=== PATIENT | female | born 1940 | race Caucasian/White ===

== ENCOUNTER → 2016-12-05 | Outpatient (CLI) | payer MEDICARE, OTHER ==
[2016-12-05 12:23] LABS: Basophils # (auto) 0 uL; Basophils % (auto) 0.3 % (0.0-2.0); CONDITION Y; Eosinophils # (auto) 0.1 uL; Eosinophils % (auto) 1.6 % (0.0-7.0); Hemoglobin 13.3 g/dL (12.2-16.2); Lymphocytes # (auto) 0.7 uL; Lymphocytes % (auto) 11.5 % (10.0-50.0); Mean Corpuscular Hemoglobin 31.6 pg (28.0-32.0); Mean Corpuscular Hgb Conc. 33.3 g/dL (32.0-36.0); Mean Corpuscular Volume 95.1 fL (80.0-100.0); Mean Platelet Volume 8.3 fL (7.4-10.4); Monocytes # (auto) 0.5 uL; Monocytes % (auto) 7.4 % (0.0-12.0); Neutrophils % (auto) 79.2 % (37.0-80.0); Platelet Count (auto) 364 10^3/uL (140-450); Red Cell Distribution Width 16.1 % (11.6-16.0); White Blood Cell 6.3 10^3/uL (4.4-10.8)
[2016-12-05 12:53] LABS: Albumin 3.7 g/dL (3.4-5.0); BUN/Creatinine Ratio 37.2; Bilirubin, Total 0.6 mg/dL (0.2-1.0); Potassium 3.5 mmol/L (3.5-5.1); Total Protein 7.4 g/dL (6.4-8.2)
== END | disposition home or self-care (01) ==
LOC: LAB 11:55
DX: M06.9 Rheumatoid arthritis, unspecified (principal); M25.50 Pain in unspecified joint; D64.9 Anemia, unspecified; I10 Essential (primary) hypertension; Z79.899 Other long term (current) drug therapy; E03.9 Hypothyroidism, unspecified
CPT/HCPCS: 36415; 80053; 84443; 84480; 85025; 85652; 86141

== ENCOUNTER → 2016-12-12 | Outpatient (CLI) | payer MEDICARE, OTHER ==
[2016-12-12 11:28] LABS: Basophils # (auto) 0 uL; Basophils % (auto) 0.1 % (0.0-2.0); CONDITION Y; Eosinophils # (auto) 0.1 uL; Hemoglobin 12.6 g/dL (12.2-16.2); Lymphocytes # (auto) 0.5 uL; Lymphocytes % (auto) 6.3 % (10.0-50.0); Mean Corpuscular Hemoglobin 31.6 pg (28.0-32.0); Mean Corpuscular Hgb Conc. 33.3 g/dL (32.0-36.0); Mean Corpuscular Volume 95.1 fL (80.0-100.0); Mean Platelet Volume 8.4 fL (7.4-10.4); Monocytes # (auto) 0.4 uL; Monocytes % (auto) 5.5 % (0.0-12.0); Neutrophils # (auto) 6.8 uL; Neutrophils % (auto) 87.1 % (37.0-80.0); Platelet Count (auto) 339 10^3/uL (140-450); Red Cell Distribution Width 16.2 % (11.6-16.0); White Blood Cell 7.8 10^3/uL (4.4-10.8)
[2016-12-12 11:48] LABS: Albumin 3.4 g/dL (3.4-5.0); BUN/Creatinine Ratio 15.1; Bilirubin, Total 0.6 mg/dL (0.2-1.0); Calcium 8.3 mg/dL (8.5-10.1); Potassium 3.4 mmol/L (3.5-5.1); Total Protein 6.9 g/dL (6.4-8.2)
== END | disposition home or self-care (01) ==
LOC: LAB 11:07
DX: I10 Essential (primary) hypertension (principal); M06.9 Rheumatoid arthritis, unspecified; D64.9 Anemia, unspecified; M25.50 Pain in unspecified joint; Z79.899 Other long term (current) drug therapy
CPT/HCPCS: 36415; 80053; 85025; 85652; 86141

== ENCOUNTER → 2016-12-26 | Outpatient (CLI) | payer MEDICARE, OTHER | END | disposition home or self-care (01) | LOC: LAB 11:17 | DX: M33.20 Polymyositis, organ involvement unspecified (principal) | CPT/HCPCS: 36415; 82550 ==

== ENCOUNTER → 2017-01-02 | Outpatient (CLI) | payer MEDICARE, OTHER ==
[2017-01-02 12:53] LABS: Cholesterol 218 mg/dL (< 200); HDL Cholesterol 42 mg/dL (40-59); LDL Cholesterol 166 mg/dL (< 100); Triglycerides 115 mg/dL (< 150)
== END | disposition home or self-care (01) ==
LOC: LAB 10:42
PROVIDERS: ATTEND Internal Medicine
DX: E78.5 Hyperlipidemia, unspecified (principal); E03.9 Hypothyroidism, unspecified
CPT/HCPCS: 36415; 80061; 84443

== ENCOUNTER → 2017-02-06 | Outpatient (CLI) | payer MEDICARE, OTHER ==
[2017-02-06 13:06] LABS: Basophils # (auto) 0 uL; Basophils % (auto) 0.7 % (0.0-2.0); Eosinophils # (auto) 0.1 uL; Lymphocytes # (auto) 0.6 uL; Lymphocytes % (auto) 12.1 % (10.0-50.0); Monocytes # (auto) 0.4 uL; Monocytes % (auto) 7.4 % (0.0-12.0); Neutrophils # (auto) 4.2 uL; Neutrophils % (auto) 77.8 % (37.0-80.0); Nucleated Red Blood Cells % 0.1 %; White Blood Cell 5.3 10^3/uL (4.4-10.8)
[2017-02-06 13:08] LABS: Hematocrit 40.6 % (36.0-46.0); Hemoglobin 13.7 g/dL (12.2-16.2); Mean Corpuscular Hemoglobin 32.3 pg (28.0-32.0); Mean Corpuscular Hgb Conc. 33.8 g/dL (32.0-36.0); Mean Corpuscular Volume 95.6 fL (80.0-100.0); Mean Platelet Volume 7.9 fL (6.9-10.8); Platelet Count (auto) 280 10^3/uL (140-450)
[2017-02-06 15:57] LABS: BUN/Creatinine Ratio 20.4; Potassium 3.9 mmol/L (3.5-5.1)
[2017-02-06 15:58] LABS: Albumin 3.6 g/dL (3.4-5.0); Bilirubin, Total 0.7 mg/dL (0.2-1.0); Calcium 8.5 mg/dL (8.5-10.1); Total Protein 7.3 g/dL (6.4-8.2)
== END | disposition home or self-care (01) ==
LOC: LAB 11:20
DX: I10 Essential (primary) hypertension (principal); D64.9 Anemia, unspecified; M25.50 Pain in unspecified joint; M33.20 Polymyositis, organ involvement unspecified; Z79.899 Other long term (current) drug therapy
CPT/HCPCS: 36415; 80053; 82085; 82550; 85025; 85652; 86141

== ENCOUNTER → 2017-04-10 | Outpatient (CLI) | payer MEDICARE, OTHER ==
[2017-04-10 12:00] LABS: Basophils # (auto) 0 uL; Basophils % (auto) 0.6 % (0.0-2.0); Eosinophils # (auto) 0.2 uL; Eosinophils % (auto) 2.9 % (0.0-7.0); Hematocrit 41.4 % (36.0-46.0); Hemoglobin 13.7 g/dL (12.2-16.2); Lymphocytes # (auto) 0.6 uL; Lymphocytes % (auto) 9.9 % (10.0-50.0); Mean Corpuscular Hemoglobin 32.4 pg (28.0-32.0); Mean Corpuscular Volume 98.3 fL (80.0-100.0); Monocytes # (auto) 0.4 uL; Monocytes % (auto) 7.3 % (0.0-12.0); Neutrophils # (auto) 4.7 uL; Neutrophils % (auto) 79.3 % (37.0-80.0); Nucleated Red Blood Cells % 0.1 %; Platelet Count (auto) 291 10^3/uL (140-450); White Blood Cell 5.9 10^3/uL (4.4-10.8)
[2017-04-10 13:00] LABS: Albumin 3.7 g/dL (3.4-5.0); BUN/Creatinine Ratio 20.8; Bilirubin, Total 0.6 mg/dL (0.2-1.0); Calcium 8.4 mg/dL (8.5-10.1); Potassium 3.7 mmol/L (3.5-5.1); Total Protein 7.4 g/dL (6.4-8.2)
== END | disposition home or self-care (01) ==
LOC: LABCORP 11:28
DX: I10 Essential (primary) hypertension (principal); M06.9 Rheumatoid arthritis, unspecified; E78.00 Pure hypercholesterolemia, unspecified; I70.0 Atherosclerosis of aorta; D64.9 Anemia, unspecified; M33.20 Polymyositis, organ involvement unspecified; Z79.899 Other long term (current) drug therapy
CPT/HCPCS: 36415; 80053; 82550; 85025; 85652; 86141

== ENCOUNTER 2019-03-05 23:28 | Inpatient (IN) | payer MEDICARE, OTHER ==
[~2019-03-05] VITALS: Ht 160 cm; Wt 81.7 kg
[2019-03-06] VITALS (8 sets, daily range): BP systolic 76–163; BP diastolic 45–76
[2019-03-06 00:16] LABS: Basophils # (auto) 0.1 uL; Basophils % (auto) 0.9 % (0.0-2.0); Eosinophils # (auto) 0 uL; Eosinophils % (auto) 0.5 % (0.0-7.0); Hematocrit 42.7 % (36.0-46.0); Hemoglobin 14.2 g/dL (12.2-16.2); Lymphocytes # (auto) 0.7 uL; Lymphocytes % (auto) 7.1 % (10.0-50.0); Mean Corpuscular Hemoglobin 29.7 pg (28.0-32.0); Mean Corpuscular Hgb Conc. 33.2 g/dL (32.0-36.0); Mean Corpuscular Volume 89.6 fL (80.0-100.0); Monocytes # (auto) 0.4 uL; Monocytes % (auto) 4.2 % (0.0-12.0); Neutrophils # (auto) 8.3 uL; Neutrophils % (auto) 87.3 % (37.0-80.0); Platelet Count (auto) 295 10^3/uL (140-450); Red Blood Cells 4.77 10^6/uL (4.0-5.20); Red Cell Distribution Width 17.5 % (11.8-14.3); White Blood Cell 9.5 10^3/uL (4.4-10.8)
[2019-03-06 00:33] LABS: Alanine Aminotransferase 26 U/L (13-56); Albumin 3.6 g/dL (3.4-5.0); Anion Gap 6 (5-15); Aspartate Aminotransferase 21 U/L (15-37); BUN/Creatinine Ratio 13.1; Blood Urea Nitrogen 8 mg/dL (7-18); Calcium 9.1 mg/dL (8.5-10.1); Carbon Dioxide 29 mmol/L (21-32); Chloride 102 mmol/L (98-107); GFR African American 122 mL/min; GFR Non-African American 101 mL/min; Glucose 137 mg/dL (74-106); Lipase 58 U/L (73-393); Magnesium 2.2 mg/dL (1.6-2.6); Potassium 3.7 mmol/L (3.5-5.1); Sodium 137 mmol/L (136-145)
[2019-03-06 00:40] LABS: Alkaline Phosphatase 171 U/L (45-117); Bilirubin, Total 1.2 mg/dL (0.2-1.0); Total Protein 7.6 g/dL (6.4-8.2)
[2019-03-06] MEDS ORDERED: ONDANSETRON HCL 4 MG/2 ML VIAL IV ONE (03:30)
[2019-03-06] MEDS ORDERED: MORPHINE SULFATE 4 MG/ML SYR/VIAL IV ONE (03:30)
[2019-03-06 03:46] LABS: Urine Bacteria FEW /hpf (None Seen); Urine Blood Negative /uL (Negative); Urine Mucus FEW (None Seen); Urine Specific Gravity 1.023 (1.001-1.035); Urine WBC 22 /hpf (0 - 5)
[2019-03-06] MEDS ORDERED: ACETAMINOPHEN 500 MG TAB PO PRN (05:15)
[2019-03-06] MEDS: HYDROmorphone HCL 2 MG/ML VL IV PRN ×3 (06:16→16:07)
[2019-03-06] MEDS: metroNIDAZOLE 500MG/100ML 100 ML IV SCH ×3 (06:29→21:35)
--- NOTE | 2019-03-06 08:40 | NUR ---
PT IN ROOM. IN LOW FOWLERS AT MOMENT. AROUSABLE TO VERBAL STIMULI. ABLE TO LET NEEDS KNOWN, REPORTS GENERALIZED WEAKNESS. EFFORTLESS BREATHING ON ROOM AIR 93% IV PRESENT TO RIGHT WRIST #22. PT ORIENTED TO ROOM ENVIRONMENT, BED LOCKED AND IN LOWEST POSITION, CALL LIGHT WITHIN REACH. WILL CONTINUE TO MONITOR.
[2019-03-06] MEDS ORDERED: POTA10TA51 PO (09:41)
[2019-03-06] MEDS ORDERED: LACTCAP35 OR (09:41)
[2019-03-06] MEDS ORDERED: FOLI1TAB6 PO (09:41)
[2019-03-06] MEDS ORDERED: HYDR-4833 PO (09:41)
[2019-03-06] MEDS ORDERED: FLEETMIN PR (09:41)
[2019-03-06] MEDS ORDERED: CAR3125T PO (09:41)
[2019-03-06] MEDS ORDERED: CYAN500L3 PO (09:41)
[2019-03-06] MEDS ORDERED: BISA10SU45 RE (09:41)
[2019-03-06] MEDS ORDERED: ROSU10TA16 PO (09:41)
[2019-03-06] MEDS ORDERED: MULT-688 PO (09:41)
[2019-03-06] MEDS ORDERED: EZET10TA22 PO (09:41)
[2019-03-06] MEDS ORDERED: MESA0.37 PO (09:41)
[2019-03-06] MEDS ORDERED: LOPE7.5C PO (09:41)
[2019-03-06] MEDS ORDERED: ACET-1156 PO (09:41)
[2019-03-06] MEDS ORDERED: HYDR12.56 PO (09:41)
[2019-03-06] MEDS ORDERED: LOSA-69 PO (09:41)
[2019-03-06] MEDS ORDERED: CARV6.25 PO (09:41)
[2019-03-06] MEDS ORDERED: LEVO100T8 PO (09:41)
[2019-03-06] MEDS ORDERED: CHOL20007 OR (09:41)
[2019-03-06] MEDS ORDERED: LEUC5TAB PO (09:41)
[2019-03-06] MEDS ORDERED: ONDA-144 PO (09:41)
[2019-03-06] MEDS ORDERED: METH50IN6 IJ (09:41)
[2019-03-06] MEDS ORDERED: APIX5TAB PO (09:41)
[2019-03-06] MEDS ORDERED: DOCU100T15 PO (09:41)
[2019-03-06] MEDS ORDERED: MAGN400S25 PO (09:41)
[2019-03-06] MEDS ORDERED: NITR0.4S29 SL (09:41)
[2019-03-06] MEDS ORDERED: FAM20T PO (09:41)
[2019-03-06] MEDS ORDERED: POLY33504 PO (09:41)
[2019-03-06] MEDS: FAMOTIDINE (10MG/ML) 2ML VL IV SCH (10:32)
[2019-03-06] MEDS: cefTRIAXone 1GM/50ML D5W 50 ML IV SCH (10:32)
--- NOTE | 2019-03-06 11:10 | NUR ---
NGT INSERTION COMPLETED. RIGHT NARES, TUBE AT NOTCH 56, SECURED INTO PLACE. KUB ORDERED FOR PLACEMENT CONFIRMATION, RADIOLOGY DEPT. AWARE. WILL CONTINUE TO MONITOR.
--- NOTE | 2019-03-06 12:39 | NUR ---
14 Fr NGT TO RIGHT NARES; TO LOW INTERMITTENT SUCTION PER ORDER. DR. LU AT BEDSIDE, EVALUATING PT. MADE AWARE OF BLOOD PRESSURE 163/76, HR:69 WILL CONTINUE TO MONITOR.
--- NOTE | 2019-03-06 13:10 | NUR ---
SURGICAL CONSULT CALLED.
[2019-03-06] MEDS: SODIUM CHLORIDE 0.9% 1,000 ML IV SCH (14:41)
--- NOTE | 2019-03-06 16:30 | NUR ---
DR. VÁZQUEZ AT BEDSIDE. PLAN OF CARE IN DISCUSSION WITH PT AND FAMILY.
--- NOTE | 2019-03-06 16:45 | NUR ---
HYGIENE CARE PROVIDED, HYDRA-GUARD APPLIED TO PERINEAL AREA.
--- NOTE | 2019-03-06 17:05 | NUR ---
B/P: 70/50 (59), 85; 16; 94% ON 2LNC. PT RESPONSIVE TO VERBAL STIMULI, ORIENTEDx3. ABLE TO LET NEEDS KNOWN AT THIS TIME. PT RECEIVING FLUIDS PER ORDER AT MOMENT. CN MADE AWARE OF PT'S CONDITION. WILL CONTINUE TO MONITOR. CLOSELY. RADIOLOGY DEPT. CALLED AND SCHEDULE BOWEL SERIES FOR MORNING OF 03/07/19 DUE TO STAFFING AND CURRENT PT'S CONDITION.
--- NOTE | 2019-03-06 17:34 | NUR ---
B/P: 76/53 (61) PT RESPONDS TO COMMANDS. ORIENTED x3. FAMILY AT BEDSIDE. CALL LIGHT WITHIN REACH.
--- NOTE | 2019-03-06 17:59 | NUR ---
NGT IN PLACE AND SECURED TO RIGHT NARES. 150ML OF CREAM-LIKE RESIDUAL IN COLLECTING CHAMBER.
--- NOTE | 2019-03-06 18:18 | NUR ---
PT RESPONSIVE TO NAME, AWAKENS EASILY. ORIENTED x3. ABLE TO LET NEEDS KNOWN. B/P: 81/56 (66), HR: 78, RR: 17; 98% 2LNC. CALL LIGHT WITHIN REACH.
--- NOTE | 2019-03-06 19:40 | NUR ---
OPENING SHIFT NOTE RECEIVED REPORT FROM DAYSHIFT RN. PATIENT LYING IN BED WITH EYES CLOSED. PATIENT A/O X4, BEDREST. NO S/S OF DISTRESS OR SOB. PATIENT REPORTS PAIN TO ABDOMEN, INFORMED PATIENT BP TOO LOW TO ADMINISTER PAIN MEDICATIONS, PATIENT VERBALIZED UNDERSTANDING. NGT PRESENT AND PATENT TO RIGHT NARE ON LIS, PATIENT TOLERATING WELL. UPDATED PATIENT ON POC, VERBALIZED UNDERSTANDING. BED LOCKED IN LOW POSITION, CALL LIGHT WITHIN REACH, BED ALARM ON FOR SAFETY. WILL CONTINUE TO MONITOR PATIENT Q1HR AND PRN.
[2019-03-07 04:48] VITALS: BP 98/55
[2019-03-07] MEDS: metroNIDAZOLE 500MG/100ML 100 ML IV SCH ×3 (05:32→21:27)
[2019-03-07] MEDS: SODIUM CHLORIDE 0.9% 1,000 ML IV SCH ×3 (05:32→21:07)
[2019-03-07 06:46] LABS: Basophils # (auto) 0 uL; Basophils % (auto) 0.1 % (0.0-2.0); Eosinophils # (auto) 0 uL; Eosinophils % (auto) 0.1 % (0.0-7.0); Hematocrit 40.8 % (36.0-46.0); Hemoglobin 13.5 g/dL (12.2-16.2); Lymphocytes # (auto) 0.4 uL; Lymphocytes % (auto) 9.4 % (10.0-50.0); Mean Corpuscular Hemoglobin 29.8 pg (28.0-32.0); Mean Corpuscular Volume 90.5 fL (80.0-100.0); Monocytes # (auto) 0.5 uL; Monocytes % (auto) 10.8 % (0.0-12.0); Neutrophils # (auto) 3.7 uL; Neutrophils % (auto) 79.6 % (37.0-80.0); Platelet Count (auto) 258 10^3/uL (140-450); Red Blood Cells 4.51 10^6/uL (4.0-5.20); Red Cell Distribution Width 17.8 % (11.8-14.3); White Blood Cell 4.7 10^3/uL (4.4-10.8)
[2019-03-07 07:13] LABS: BUN/Creatinine Ratio 27.4; Calcium 7.6 mg/dL (8.5-10.1); Potassium 3.4 mmol/L (3.5-5.1)
[2019-03-07] MEDS: cefTRIAXone 1GM/50ML D5W 50 ML IV SCH (07:57)
[2019-03-07] MEDS ORDERED: GASTROGRAFIN 120 ML SOL ONE (09:28)
[2019-03-07 09:30] VITALS: BP 102/52
[2019-03-07] MEDS: FAMOTIDINE (10MG/ML) 2ML VL IV SCH (10:19)
--- NOTE | 2019-03-07 10:25 | NUR ---
DR. MACKAY WAS IN TO SEE PT FOR CARDIAC CLEARANCE. STATED THAT THE PT IS ON INTERMEDIATE RISK FOR SURGERY.
--- NOTE | 2019-03-07 10:50 | NUR ---
PAGED DR. VÁZQUEZ AND MD CALLED BACK AND INFORMED MD THAT PT WAS CLEARED BY DR. MACKAY FOR SURGERY. WANTED THE BOWEL SERIES DONE URGENTLY. PHONED RADIOLOGY AND INFORMED THEM THAT DR. VÁZQUEZ WANTS THE PROCEDURE DONE URGENTLY.
[2019-03-07 12:22] VITALS: BP 104/56
--- NOTE | 2019-03-07 12:30 | NUR ---
PT TO RADIOLOGY PER BED FOR SMALL BOWEL SERIES. PT LEFT IN A STABLE CONDITION.
--- NOTE | 2019-03-07 13:35 | NUR ---
PT RETURNED FROM RADIOLOGY PER BED IN A STABLE CONDITION. PT'S NGT REMAINED CLAMPED PER TECH INSTRUCTION.
[2019-03-07] MEDS: ONDANSETRON HCL 4 MG/2 ML VIAL IV PRN (15:33)
--- NOTE | 2019-03-07 16:35 | NUR ---
Pt is an alert and oriented female that has been residing at home alone and functioning independently prior to admission. Pt states she had this condition back in November and she was sent to [facility]. States she stayed there until January 24. Discussed with pt if she was looking at SNF placement( if she qualifies) or going home. Also advised pt that she may not have any Skilled days left and the facility would have to be contacted. Pt states she would like to go for placement if she qualifies and has days left. Otherwise pt is receptive to home health. Pt states she has not been on home health services before and has no preference at this time but wants to wait to hear what the facility has to say. Will advise Tanna to make inquiry with [facility] and continue to monitor/provide intervention as neccessary. Addendum: 03/07/19 at 1639 by FRANK AU Amended: Links added.
[2019-03-07 16:50] VITALS: BP 101/59
--- NOTE | 2019-03-07 19:40 | NUR ---
OPENING SHIFT NOTE RECEIVED REPORT FROM DAYSHIFT RN. PATIENT LYING IN BED WITH EYES CLOSED. PATIENT A/O X4, BEDREST. NO S/S OF DISTRESS OR SOB. PATIENT REPORTS PAIN TO ABDOMEN, INFORMED PATIENT BP TOO LOW TO ADMINISTER PAIN MEDICATIONS, PATIENT VERBALIZED UNDERSTANDING. NGT PRESENT PATENT TO RIGHT NARE, CLAMPED R/T SMALL BOWEL SERIES. UPDATED PATIENT ON POC, VERBALIZED UNDERSTANDING. BED LOCKED IN LOW POSITION, CALL LIGHT WITHIN REACH, BED ALARM ON FOR SAFETY. WILL CONTINUE TO MONITOR PATIENT Q1HR AND PRN.
--- NOTE | 2019-03-07 20:30 | NUR ---
SPOKE WITH RADIOLOGY PER PAY STATION COLLECTOR, KEEP NG CLAMPED UNTIL AM DUE TO SMALL BOWEL SERIES NOT COMPLETE AND KUB IN AM FOR F/U UNLESS PATIENT IS HAVING SEVERE PAIN. WILL CONTINUE TO MONITOR PATIENT.
[2019-03-07] MEDS: HYDROmorphone HCL 2 MG/ML VL IV PRN (21:27)
[2019-03-07 22:00] VITALS: BP 124/68
[2019-03-08] MEDS: HYDROmorphone HCL 2 MG/ML VL IV PRN ×5 (01:38→22:15)
[2019-03-08 05:00] VITALS: BP 129/61
[2019-03-08] MEDS: metroNIDAZOLE 500MG/100ML 100 ML IV SCH ×3 (05:33→22:15)
[2019-03-08] MEDS: SODIUM CHLORIDE 0.9% 1,000 ML IV SCH ×2 (05:34→18:34)
--- NOTE | 2019-03-08 07:57 | NUR ---
PT NOTED TO BE SLEEPING SOUNDLY AT THIS TIME. NGT STILL CLAMPED AND NO C/O NAUSEA/ EMESIS NOTED. DR. MACKAY WAS IN TO SEE PT AND MD LEFT NO NEW ORDERS.
[2019-03-08] MEDS: ONDANSETRON HCL 4 MG/2 ML VIAL IV PRN ×2 (08:48→22:15)
--- NOTE | 2019-03-08 08:48 | NUR ---
DR LU WAS IN TO SEE PT. WANTED TO BE CALLED IF PT OKAY TO BE DISCHARGE PER DR. VÁZQUEZ. STATED THAT PT'S NGT CAN BE RECONNECTED TO LOW INTERMITTENT SUCTION AND SAME DONE. PT C/O NAUSEA AND PTN ZOFRAN GIVEN. PT HAD EMESIS X1 TO DARK GREENISH LIQUID 100 ML. PT STATED THAT SHE FELT BETTER AFTER. WILL CONTINUE TO MONITOR PT.
[2019-03-08 09:00] VITALS: BP 146/75
[2019-03-08] MEDS: cefTRIAXone 1GM/50ML D5W 50 ML IV SCH (09:06)
[2019-03-08] MEDS: FAMOTIDINE (10MG/ML) 2ML VL IV SCH (09:49)
[2019-03-08 13:00] VITALS: BP 101/63
[2019-03-08 14:00] LABS: INR 1.14 (0.9-1.15); Partial Thromboplastin Time 30.9 sec (23.64-32.05)
--- NOTE | 2019-03-08 14:37 | NUR ---
NUTRITION ASSESSMENT NOTES Please refer to link notes of nutrition screen form filed under the intervention section of the plan of care for further details. Est. Needs: 1400 kcal to 1750 kcal (20-25 kcal/kgBW), 55 gms to 69 gms pro (0.8-1.0 gms/kgBW). Will continue to monitor pertinent labs and reassess nutrient need prn Thank you. Addendum: 03/08/19 at [address] Amended: Links added.
[2019-03-08 17:00] VITALS: BP 118/81
--- NOTE | 2019-03-08 19:10 | NUR ---
Opening Shift Note Assumed care of patient is sleeping. With bilateral chest rise and fall RR 18. No S/S of distress/SOB or pain. will continue to monitor for changes Q1hr and PRN. Bed in low position and call light within reach.
[2019-03-08 20:00] VITALS: BP 120/91
[2019-03-08 21:30] VITALS: BP 120/91
--- NOTE | 2019-03-08 22:10 | NUR ---
NGT output 400 green output. NGT is on LIS on right nares measuring at 56. NG tube in place per MD order. Placement verified by aspiration of stomach contents, auscultation and chest xray.
--- NOTE | 2019-03-09 00:29 | NUR ---
12 lead ekg 12 lead ekg performed on patient NSR with HR 63bpm. Preop ekg. Patient denies symptoms of sob or pain.
--- NOTE | 2019-03-09 01:30 | NUR ---
IV insertion IV access obtained by Deanna Mccullough, via clean sterile technique by inserting 22 gauge catheter at R forearm after 3 attempt. IV secured properly. No trauma to site. Patient tolerated well.
--- NOTE | 2019-03-09 01:31 | NUR ---
IV removal IV DC'd with clean sterile technique, catheter fully intact. Pressure dressing applied to site. Patient tolerated well.
[2019-03-09] MEDS: SODIUM CHLORIDE 0.9% 1,000 ML IV SCH ×3 (01:43→22:09)
[2019-03-09] MEDS: ONDANSETRON HCL 4 MG/2 ML VIAL IV PRN (02:36)
[2019-03-09] MEDS: HYDROmorphone HCL 2 MG/ML VL IV PRN ×7 (02:37→20:29)
--- NOTE | 2019-03-09 05:00 | NUR ---
Informed patient about removing jewelry for procedure. Attempted to remove jewelry/ rings from patients finger. Unable to due to patient having nodules on her fingers.Per patient " I have not been able to remove the rings, every time I have surgery they tape them." Patient has 6 rings. Upper dentures removed and put in the closet in patients belonging bags.
--- NOTE | 2019-03-09 05:09 | NUR ---
Patient wiped down with CHG wipes with assistance of RESCUE WORKER.
[2019-03-09] MEDS: metroNIDAZOLE 500MG/100ML 100 ML IV SCH ×3 (05:44→22:08)
--- NOTE | 2019-03-09 06:40 | NUR ---
Patient taken down to to preop via bed. Report given to rivera dillard preop nurse. Informed rn unable to remove rings on patient. All questions and concerns about patient answered. patient showed no signs of distress or sob when taken down.
--- NOTE | 2019-03-09 06:55 | NUR ---
Call from RN preop rivera patient may need to be brought up as another patient maybe taken to surgery first, KAPIL stafford said she will call to notify me if patient needs to be brought back on the unit.. Will endorse care to dayshift rn.
--- NOTE | 2019-03-09 07:00 | NUR ---
REPORT RECEIVED FROM COLE DICK. PT WAS ALREADY IN PRE OP FOR SCHEDULED SURGERY.
--- NOTE | 2019-03-09 07:00 | NUR ---
Report given to day shift Rn. Informed RN patient is down in surgery. Informed rn that patient maybe brought back to unit, preop RN rivera will call. Gave rn patient telemonitor number 4, rn said to place telemonitor in his box, telemonitor placed in his box with Rn aware.
[2019-03-09] MEDS ORDERED: ceFAZolin 1GM/50ML 50 ML IV ONE (07:20)
[2019-03-09] MEDS ORDERED: SUCCINYLCHOLINE CHLORIDE 20 MG/ML 10ML VIAL IV ONE (07:33)
[2019-03-09] MEDS ORDERED: LIDOCAINE 1% HCL (LOCAL ANESTH.) INJ 20ML MDV ONE (07:33)
[2019-03-09] MEDS ORDERED: ROCURONIUM 10MG/ML 10ML VIAL IV ONE (07:37)
[2019-03-09] MEDS ORDERED: ETOMIDATE (2MG/ML) 20ML VIAL IV ONE (07:37)
[2019-03-09] MEDS ORDERED: MIDAZOLAM HCL 1MG/1ML-2 ML VIAL ONE (07:37)
[2019-03-09] MEDS ORDERED: fentaNYL CITRATE 100 MCG/2 ML VL ONE (07:50)
[2019-03-09] MEDS ORDERED: SODIUM CHLORIDE LOCK 10 ML ONE ×2 (07:58→08:37)
[2019-03-09] MEDS ORDERED: ePHEDrine SULFATE 50 MG/ML AMP ONE (07:58)
[2019-03-09] MEDS ORDERED: PHENYLEPHRINE HCL 10 MG/ML VL ONE (08:37)
[2019-03-09] MEDS ORDERED: POVIDONE IODINE 5% TOPICAL CREAM TOP ONE (09:10)
[2019-03-09] MEDS ORDERED: GLYCOPYRROLATE 0.2 MG/ML 1ML VIAL ONE (09:19)
[2019-03-09] MEDS ORDERED: NEOSTIGMINE 1 MG/ML INJ (10mg/10ML VIAL) ONE (09:19)
[2019-03-09] MEDS ORDERED: NALOXONE HCL 0.4 MG/ML VIAL IV PRN (10:00)
--- NOTE | 2019-03-09 11:16 | NUR ---
PT WAS BROUGHT BACK TO HER FROM RECOVERY S/P EXPLORATORY LAPAROTOMY, RELEASE OF SBO, LYSIS OF ADHESION. PER BED ACCOMPANIED BY PACU RNS. PT AWAKE, ALERT WITH HER EYES CLOSED AND C/O SURGICAL PAIN IN HER ABDOMEN 02/10. PT WAS JUST MEDICATED FOR PAIN PRIO TO PT'S TRANSFER. PT WITH DRESSING TO ABDOMEN CLEAN, DRY AND INTACT AND ABDOMINAL BINDER REAPPLIED AFTER INSPECTION OF SITE. REPORT RECEIVED FROM MEG ROSE RN BY PHONE AND AT BEDSIDE. PT WITH PORTER CATHETER DRAINING CLEAR, YELLOW URINE, NGT RECONNECTED TO WALL SUCTION ON LOW CONTINUOUS SUCTION WITH SMALL AMOUNT OF GREENISH COMING OUT. PLACEMENT OF NGT CHECKED AND SAME NOTED PATENT AND IN PLACE. SCD ON AND CONNECTED TO MACHINE. BP 122/54, HR 76 RR-16 02 SAT AT 98% ON 2 LITERS O2 PER NASAL CANNULA. WILL CONTINUE TO MONITOR PT. PT'S FAMILY WERE IN TO SEE PT. Addendum: 03/09/19 at 1826 by Tunde Gilmore RN 08 PHYSICAL ASSESSMENT WAS DONE AT THIS TIME.
[2019-03-09] MEDS: FAMOTIDINE (10MG/ML) 2ML VL IV SCH (12:39)
[2019-03-09] MEDS: cefTRIAXone 1GM/50ML D5W 50 ML IV SCH (12:39)
[2019-03-09 13:00] VITALS: BP 112/56
[2019-03-09 17:00] VITALS: BP 96/45
--- NOTE | 2019-03-09 17:00 | NUR ---
INSTRUCTED PT ON HOW TO USE INCENTIVE SPIROMETER AND PT VERBALIZED UNDERSTANDING. PT NOTED TO BE SLEEPY AT THIS TIME. PT WAS ALSO ENCOURAGED TO AMBULATE WITH ASSIST BUT REFUSED TO DO SO AT THIS TIME. PT STATED THAT WILL WALK AFTER SHE GETS HER PRN DILAUDID THIS EVENING.
--- NOTE | 2019-03-09 19:50 | NUR ---
open note assumed care of pt. upon entering room pt on 2L NC with no distress noted. pt eyes are closed, breathing is even and unlabored. pt has NGT to right nare connected to LCS. pt has south in place draining clear yellow. bed locked, low and 2x rails up. call light in reach. this nurse will return to update pt on plan of care. this nurse will round q1hr and prn.
[2019-03-09 22:00] VITALS: BP 109/59
[2019-03-10 00:28] VITALS: BP 122/69
[2019-03-10] MEDS: HYDROmorphone HCL 2 MG/ML VL IV PRN ×6 (00:35→22:49)
[2019-03-10 05:00] VITALS: BP 116/81
[2019-03-10] MEDS: metroNIDAZOLE 500MG/100ML 100 ML IV SCH ×3 (06:07→21:40)
--- NOTE | 2019-03-10 07:30 | NUR ---
Opening Shift Note Assumed care of patient, awake and alert. No S/S of distress/SOB or pain. Instructed on POC and to call for assist PRN, will continue to monitor for changes Q1hr and PRN. Patient has NG to LIS.
[2019-03-10 09:00] VITALS: BP 145/72
[2019-03-10] MEDS: FAMOTIDINE (10MG/ML) 2ML VL IV SCH (09:18)
[2019-03-10] MEDS: cefTRIAXone 1GM/50ML D5W 50 ML IV SCH (09:18)
[2019-03-10] MEDS: ONDANSETRON HCL 4 MG/2 ML VIAL IV PRN ×4 (09:26→22:54)
[2019-03-10] MEDS: SODIUM CHLORIDE 0.9% 1,000 ML IV SCH ×2 (10:00→21:17)
--- NOTE | 2019-03-10 11:49 | NUR ---
Nutrition Follow-up Notes Wt.: 73.0 kg as of yesterday. Pt's asleep, no immediate family member at bedside during rounds earlier. Pt's s/p explor lap yesterday, no signs of distress noted earlier, remains NPO, no order for diet nor alternate nutrition support yet at this time. Est. Needs: 1400 kcal to 1750 kcal (20-25 kcal/kgBW), 55 gms to 69 gms pro (0.8-1.0 gms/kgBW). Will continue to monitor pertinent labs and reassess nutrient need prn Labs: No new labs today except for Beta HCG <1 L; 03/07/19 Gluc 139 H, Cl 112 H, K 3.4 L, BUN 29 H, Cr 1.06 H, Ca 7.6 L, ALP 171 H Skin: Josue scale 14, mod risk, skin intact per drivers' cash clerk. GI: Pt had 2x BM yesterday per drivers' cash clerk. PES: Increased nutrient needs r/t altered GI functions aeb Acute abdominal pain,Small bowel obstruction, partial, NPO. Altered nutrition related lab values r/t current/chronic medical condition aeb hyperglycemia, hyponatremia, hypokalemia, elev. renal labs, ALP, hypocalcemia Will continue to monitor NPO status, skin status, pertinent labs and weight trend. F/u in 2 to 3 days. Rec.: 1.) Advance gradually to oral diet (Soft Cardiac: 2 gms Na, Low Chol, Low Fat diet) when medically appropriate. 2.) If still NPO in next 48 hrs, consider alternate nutrition support if medically appropriate. 3.) Refer to RD for further nutrition educ. and weight monitoring upon discharge. 4.) Continue current plan of care.
[2019-03-10 13:00] VITALS: BP 127/76
--- NOTE | 2019-03-10 13:10 | NUR ---
Patient requesting pain medication. IV right forearm puffy and tender to touch. IV removed with tip intact. Pressure dressing to site. IV restart attempted X1 without success. veneer repairer machine, Marixa, informed. She will come start IV. Patient informed. Will continue to monitor.
--- NOTE | 2019-03-10 13:55 | NUR ---
IV insertion IV access obtained, via clean sterile technique by inserting 22 gauge catheter at left hand after 1 attempt. IV secured properly. No trauma to site. Patient tolerated procedure well.
--- NOTE | 2019-03-10 14:00 | NUR ---
Patient medicated for pain 8/10 and nausea. Call light in reach. Will continue to monitor.
--- NOTE | 2019-03-10 20:00 | NUR ---
PATIENT IS A0 X4. SHE IS BEDREST AT THE MOMENT. SHE COMPLAINS OF ABDOMINAL PAIN AND NAUSEA INTERMITTENTLY. SHE HAS AN ABDOMINAL BINDER AND STITCHES TO THE ANTERIOR ABDOMEN. SHE IS ON 2L NC. BED IS LOCKED IN THE LOWEST POSITION WITH SIDE RAILS UP X2. CALL LIGHT IS WITHIN REACH. WILL CONTINUE TO MONITOR.
[2019-03-10 22:00] VITALS: BP 125/61
[2019-03-11] MEDS: HYDROmorphone HCL 2 MG/ML VL IV PRN ×5 (03:03→20:17)
[2019-03-11] MEDS: ONDANSETRON HCL 4 MG/2 ML VIAL IV PRN ×5 (03:04→20:17)
[2019-03-11 05:00] VITALS: BP 138/73
[2019-03-11] MEDS: metroNIDAZOLE 500MG/100ML 100 ML IV SCH ×3 (06:17→21:30)
[2019-03-11] MEDS: SODIUM CHLORIDE 0.9% 1,000 ML IV SCH ×3 (06:17→19:19)
[2019-03-11 07:05] LABS: Basophils # (auto) 0 uL; Basophils % (auto) 0.1 % (0.0-2.0); Eosinophils # (auto) 0 uL; Eosinophils % (auto) 0.5 % (0.0-7.0); Hematocrit 35.4 % (36.0-46.0); Hemoglobin 11.5 g/dL (12.2-16.2); Lymphocytes # (auto) 0.7 uL; Lymphocytes % (auto) 8.1 % (10.0-50.0); Mean Corpuscular Hemoglobin 29.3 pg (28.0-32.0); Mean Corpuscular Hgb Conc. 32.4 g/dL (32.0-36.0); Mean Corpuscular Volume 90.4 fL (80.0-100.0); Monocytes # (auto) 1.1 uL; Monocytes % (auto) 13.4 % (0.0-12.0); Neutrophils # (auto) 6.5 uL; Neutrophils % (auto) 77.9 % (37.0-80.0); Platelet Count (auto) 224 10^3/uL (140-450); Red Blood Cells 3.91 10^6/uL (4.0-5.20); Red Cell Distribution Width 17.3 % (11.8-14.3); White Blood Cell 8.4 10^3/uL (4.4-10.8)
[2019-03-11 07:12] LABS: Albumin 2.1 g/dL (3.4-5.0); Calcium 7.7 mg/dL (8.5-10.1)
[2019-03-11 07:18] LABS: BUN/Creatinine Ratio 17.4; Bilirubin, Total 0.5 mg/dL (0.2-1.0)
--- NOTE | 2019-03-11 07:38 | NUR ---
Critical Lab Value Reported Tami from Lab reported Potassium of 2.4. Will page hospitalist and continue to monitor. Addendum: 03/11/19 at 0757 by JADEN BLACKWOOD RN RN Dionte called back; 40 meq of K via IV to be given. Will implement.
[2019-03-11 07:39] LABS: Potassium 2.4 mmol/L (3.5-5.1)
--- NOTE | 2019-03-11 07:45 | NUR ---
Opening Note Assumed pt care from [facility] nurse. Pt is a/ox4 with no s/s of distress or SOB. Pt is currently laying upright in bed with mild complaints of generalized abdominal pain; will provide pain medication. Discussed POC with pt; pt verbalized understanding. NG tube in still in place and patent on LIS. Safety measures maintained with call light within reach, bed in lowest position and side rails up. Will continue to monitor for changes q1hr and prn.
[2019-03-11] MEDS ORDERED: POTASSIUM CHL 20MEQ/100ML 100 ML IV SCH (08:00)
[2019-03-11] MEDS: cefTRIAXone 1GM/50ML D5W 50 ML IV SCH (08:09)
--- NOTE | 2019-03-11 08:31 | NUR ---
Dr Cochran at Bedside MD saw patient. Requested that her potassium replacement be bumped from 40mEq to 60 mEq. Also requested that I assess her Mg levels and to notify MD if Mg is less than 2. Will implement and follow through.
[2019-03-11 09:00] VITALS: BP 146/69
--- NOTE | 2019-03-11 09:42 | NUR ---
Dr Thomas At Bedside MD to see patient. To monitor patient and maintain potassium replacement. To consult Vinh Harden for f/u for s/p release of small bowel. Will continue to monitor and follow through with orders.
[2019-03-11] MEDS: FAMOTIDINE (10MG/ML) 2ML VL IV SCH (09:50)
--- NOTE | 2019-03-11 10:03 | NUR ---
Patient Requests Possible d/c to [facility] Pt states that she wishes to possibly be transferred to [facility] once d/c. Will notify MD's and health services director.
[2019-03-11] MEDS: POTASSIUM CHL 20MEQ/100ML 100 ML IV SCH ×2 (10:17→12:35)
--- NOTE | 2019-03-11 10:17 | NUR ---
Discharge planning per SS consult, patient is requesting to discharge to SNF. Dr. Jannie Thomas said patient is not stable for discharge and will not write an order for SNF placement at this time. Patient was offered choices for SNF placement. [facility] and [facility]. Referral sent. Bed is secure at both facilities however, patient's [facility] choice [facility] as she has been there before. Arnold from [phone] finally called back and was advised that they will accept this patient upon discharge to room 212-[address] Cannon and that transportation will be on will call with the General [phone].
[2019-03-11 13:00] VITALS: BP 151/67
--- NOTE | 2019-03-11 13:47 | NUR ---
PT Patient refused to be OOB or do PT during morning visit. Addendum: 03/11/19 at 1348 by AMY SAENZ PTT Amended: Links added.
--- NOTE | 2019-03-11 14:27 | NUR ---
PT Patient declined to do PT during afternoon visit with c/o weakness and fatigue. Addendum: 03/11/19 at 1428 by AMY SAENZ PTT Amended: Links added.
--- NOTE | 2019-03-11 15:10 | NUR ---
PATIENT IS REPORTING THAT SHE IS PASSING GAS
[2019-03-11 17:16] VITALS: BP 111/61
--- NOTE | 2019-03-11 17:56 | NUR ---
DR WALLACE AT BEDSIDE MD ASSESSED PT. NO NEW ORDERS AT THIS TIME. MD IS AWARE THAT PT IS PASSING GAS.
[2019-03-11 22:00] VITALS: BP 122/69
[2019-03-12] MEDS: ONDANSETRON HCL 4 MG/2 ML VIAL IV PRN ×5 (00:43→22:07)
[2019-03-12] MEDS: HYDROmorphone HCL 2 MG/ML VL IV PRN ×5 (00:44→22:06)
[2019-03-12 06:14] VITALS: BP 149/71
[2019-03-12] MEDS: metroNIDAZOLE 500MG/100ML 100 ML IV SCH ×3 (06:29→22:07)
[2019-03-12 06:56] LABS: Basophils # (auto) 0 uL; Basophils % (auto) 0.3 % (0.0-2.0); Eosinophils # (auto) 0.1 uL; Eosinophils % (auto) 1.2 % (0.0-7.0); Hematocrit 33.2 % (36.0-46.0); Hemoglobin 10.9 g/dL (12.2-16.2); Lymphocytes # (auto) 0.8 uL; Lymphocytes % (auto) 9.2 % (10.0-50.0); Mean Corpuscular Hemoglobin 29.8 pg (28.0-32.0); Mean Corpuscular Hgb Conc. 32.8 g/dL (32.0-36.0); Mean Corpuscular Volume 90.9 fL (80.0-100.0); Monocytes # (auto) 0.8 uL; Monocytes % (auto) 9.9 % (0.0-12.0); Neutrophils # (auto) 6.8 uL; Neutrophils % (auto) 79.4 % (37.0-80.0); Platelet Count (auto) 222 10^3/uL (140-450); Red Blood Cells 3.65 10^6/uL (4.0-5.20); Red Cell Distribution Width 17.5 % (11.8-14.3); White Blood Cell 8.6 10^3/uL (4.4-10.8)
--- NOTE | 2019-03-12 07:31 | NUR ---
Opening Shift Note: Assumed care of patient, awake and alert x4. No S/S of distress/SOB or pain. Bed in lowest locked position, side rails up x 2, call light within reach. Patient instructed on POC and to call for assist PRN, will continue to monitor for changes Q1hr and PRN.
[2019-03-12 07:34] LABS: Albumin 1.9 g/dL (3.4-5.0); BUN/Creatinine Ratio 12.5; Calcium 7.5 mg/dL (8.5-10.1); Potassium 3.1 mmol/L (3.5-5.1)
[2019-03-12 07:36] LABS: Bilirubin, Total 0.4 mg/dL (0.2-1.0); Total Protein 4.8 g/dL (6.4-8.2)
[2019-03-12] MEDS: cefTRIAXone 1GM/50ML D5W 50 ML IV SCH (08:14)
[2019-03-12 09:00] VITALS: BP 135/66
--- NOTE | 2019-03-12 09:44 | NUR ---
Dr. Thomas at bedside. New orders placed.
[2019-03-12] MEDS ORDERED: POTASSIUM CHL 20 Meq TABLET PO ONE (09:45)
[2019-03-12] MEDS: FAMOTIDINE (10MG/ML) 2ML VL IV SCH (10:01)
--- NOTE | 2019-03-12 10:45 | NUR ---
Per Dr. Thomas order NG tube removed. Patient tolerated well. Will continue to monitor.
[2019-03-12] MEDS: SODIUM CHLORIDE 0.9% 1,000 ML IV SCH (10:46)
--- NOTE | 2019-03-12 11:50 | NUR ---
Nutrition Follow-up Notes Wt.: 78.0 kg Pt's asleep, no immediate family member at bedside during rounds earlier. Pt's s/p explor lap, no signs of distress noted earlier, currently on clear liq diet with no PO recorded yet as pt was NPO until this am. Est. Needs: 1400 kcal to 1750 kcal (20-25 kcal/kgBW), 55 gms to 69 gms pro (0.8-1.0 gms/kgBW). Will continue to monitor pertinent labs and reassess nutrient need prn Labs: CA 7.5 L, ALB 1.9 L. Skin: Josue scale 20 low risk, skin intact per slp. GI: Pt had 2x BM on 03/09 per slp. PES: Increased nutrient needs r/t altered GI functions aeb Acute abdominal pain,Small bowel obstruction, partial, NPO. Altered nutrition related lab values r/t current/chronic medical condition aeb hyperglycemia, hyponatremia, hypokalemia, elev. renal labs, ALP, hypocalcemia Will continue to monitor PO intake, skin status, pertinent labs and weight trend. F/u in 2 to 3 days. Rec.: 1.) Advance gradually to oral diet (Soft Cardiac: 2 gms Na, Low Chol, Low Fat diet) when medically appropriate. 2.) Refer to RD for further nutrition educ. and weight monitoring upon discharge. 3.) Continue current plan of care.
--- NOTE | 2019-03-12 12:48 | NUR ---
PT Patient requested from this PTT to comeback later - patient not feeling well. Addendum: 03/12/19 at 1249 by AMY SAENZ PTT Amended: Links added.
[2019-03-12 13:00] VITALS: BP 152/71
[2019-03-12 17:00] VITALS: BP 125/67
[2019-03-12] MEDS: POTASSIUM CHL 20 Meq TABLET PO SCH (17:58)
--- NOTE | 2019-03-12 18:00 | NUR ---
IV insertion: IV access obtained, via clean sterile technique by inserting 22 gauge catheter at left wrist after 2 attempts. IV secured properly. No trauma to site. Patient tolerated well.
--- NOTE | 2019-03-12 18:03 | NUR ---
IV removal: Left hand IV DC'd with clean sterile technique, catheter fully intact. Pressure dressing applied to site. Patient tolerated well. IV became infiltrated and red.
--- NOTE | 2019-03-12 19:18 | NUR ---
Closing note: Patient laying in bed, no S/S of distress or pain at this time. Care endorsed to [facility] KAPIL Madrid.
--- NOTE | 2019-03-12 20:00 | NUR ---
Opening Shift Note Assumed care of patient, awake and alert. No S/S of distress/SOB or pain. Instructed on POC and to call for assist PRN, will continue to monitor for changes Q1hr and PRN. Patient resting in bed. Mid-line abdominal dressing with small amount of old drainage. Abdominal binder in place. Bowel sounds hypoactive, abdomen soft and non-distended. Denies nausea and vomiting. Bed in low position and call light in reach.
[2019-03-12 22:00] VITALS: BP 150/71
[2019-03-13] MEDS: HYDROmorphone HCL 2 MG/ML VL IV PRN ×5 (02:07→23:13)
[2019-03-13] MEDS: ONDANSETRON HCL 4 MG/2 ML VIAL IV PRN ×5 (02:09→23:12)
[2019-03-13 05:00] VITALS: BP 102/68
[2019-03-13] MEDS: metroNIDAZOLE 500MG/100ML 100 ML IV SCH ×3 (05:44→23:12)
--- NOTE | 2019-03-13 06:37 | NUR ---
Closing Note: Patient awake. Repositioned, south Cath in place draining clear yellow urine. Patient had a medium bowel movement. No distress noted.
[2019-03-13 06:41] LABS: Calcium 7.3 mg/dL (8.5-10.1)
[2019-03-13 06:44] LABS: BUN/Creatinine Ratio 4.2
--- NOTE | 2019-03-13 07:18 | NUR ---
Opening Shift Note: Assumed care of patient, awake and alert. No S/S of distress/SOB. Patient states pain at this time. Patient educated on medication administration and timing. Patient verbally agrees. Cotto in place, hanging lower than bladder, no kinks, draining clear, yellow urine. Bed in lowest locked position, side rails up x 2, call light within reach. Patient instructed on POC and to call for assist PRN, will continue to monitor for changes Q1hr and PRN.
[2019-03-13 07:53] LABS: Potassium 2.7 mmol/L (3.5-5.1)
--- NOTE | 2019-03-13 07:55 | NUR ---
Critical potassium 2.7. Hospitalist personnel training officer paged. Awaiting call back.
[2019-03-13] MEDS: cefTRIAXone 1GM/50ML D5W 50 ML IV SCH (07:56)
[2019-03-13 09:00] VITALS: BP 110/75
--- NOTE | 2019-03-13 09:36 | NUR ---
Dr. Thomas at bedside. Discussed POC with patient. Patient verbally agrees. Dr. Thomas notified of critical potassium levels. New orders placed.
[2019-03-13] MEDS ORDERED: POTASSIUM CHL 20MEQ/100ML 100 ML IV ONE (09:45)
[2019-03-13] MEDS: FAMOTIDINE (10MG/ML) 2ML VL IV SCH (09:49)
[2019-03-13] MEDS: POTASSIUM CHL 20 Meq TABLET PO SCH (09:49)
[2019-03-13 13:00] VITALS: BP 117/78
--- NOTE | 2019-03-13 13:29 | NUR ---
Patient placed in bedside chair by physical therapy. Per physical therapy patient is a max assist. Will continue to monitor patient.
[2019-03-13] MEDS: SODIUM CHLORIDE 0.9% 1,000 ML IV SCH ×3 (15:30→19:30)
[2019-03-13 17:00] VITALS: BP 115/63
--- NOTE | 2019-03-13 19:14 | NUR ---
Closing notes: Patient laying in bed at this time, no S/S of SOB or distress at this time. Care endorsed to [facility] KAPIL Lyons.
--- NOTE | 2019-03-13 19:40 | NUR ---
Opening Shift Note Assumed care of patient, awake and alert. No S/S of distress/SOB or pain. Bed in lowest locked position, side rails up x2, call light within reach. Abdominal dressing noted to be clean, dry, and intact with abdominal binder in place. Instructed on POC and to call for assist PRN, will continue to monitor for changes Q1hr and PRN. Addendum: 03/14/19 at 0637 by ANNELIESE ALVAREZ RN RN CORRECTION: Time of note should be 19:40.
[2019-03-13 22:00] VITALS: BP 133/73
[2019-03-14] MEDS: SODIUM CHLORIDE 0.9% 1,000 ML IV SCH ×3 (01:30→21:16)
[2019-03-14] MEDS: HYDROmorphone HCL 2 MG/ML VL IV PRN ×4 (04:33→19:41)
[2019-03-14] MEDS: ONDANSETRON HCL 4 MG/2 ML VIAL IV PRN ×3 (04:33→13:59)
[2019-03-14 05:00] VITALS: BP 136/93
[2019-03-14] MEDS: metroNIDAZOLE 500MG/100ML 100 ML IV SCH ×3 (05:51→21:41)
--- NOTE | 2019-03-14 06:36 | NUR ---
Closing Note Patient lying in bed, eyes closed, respirations even and unlabored, appears asleep. Patient awakens to name and touch. No s/s of distress. Bed in lowest locked position, side rails up x2, call light within reach. Will continue to monitor and endorse care to dayshift RN.
--- NOTE | 2019-03-14 07:07 | NUR ---
Opening Shift Note Assumed care of patient, awake and alert. No S/S of distress/SOB. Instructed on POC and to call for assist PRN, will continue to monitor for changes Q1hr and PRN.
[2019-03-14 08:07] VITALS: BP 132/67
[2019-03-14 08:51] LABS: Basophils # (auto) 0 uL; Basophils % (auto) 0.2 % (0.0-2.0); Eosinophils # (auto) 0.1 uL; Eosinophils % (auto) 1.1 % (0.0-7.0); Hematocrit 36.4 % (36.0-46.0); Hemoglobin 11.7 g/dL (12.2-16.2); Lymphocytes # (auto) 0.9 uL; Lymphocytes % (auto) 10.2 % (10.0-50.0); Mean Corpuscular Hgb Conc. 32.2 g/dL (32.0-36.0); Mean Corpuscular Volume 93.3 fL (80.0-100.0); Monocytes # (auto) 0.5 uL; Monocytes % (auto) 5.7 % (0.0-12.0); Neutrophils # (auto) 7.1 uL; Neutrophils % (auto) 82.8 % (37.0-80.0); Platelet Count (auto) 179 10^3/uL (140-450); Red Cell Distribution Width 18.1 % (11.8-14.3); White Blood Cell 8.6 10^3/uL (4.4-10.8)
[2019-03-14 09:00] VITALS: BP 132/67
[2019-03-14] MEDS: cefTRIAXone 1GM/50ML D5W 50 ML IV SCH (09:00)
[2019-03-14] MEDS: FAMOTIDINE (10MG/ML) 2ML VL IV SCH (09:01)
[2019-03-14] MEDS: POTASSIUM CHL 20 Meq TABLET PO SCH (09:01)
[2019-03-14 09:10] LABS: Alanine Aminotransferase 9 U/L (13-56); Albumin 1.7 g/dL (3.4-5.0); Anion Gap 4 (5-15); Aspartate Aminotransferase 17 U/L (15-37); BUN/Creatinine Ratio 2.4; Blood Urea Nitrogen < 1 mg/dL (7-18); Calcium 6.8 mg/dL (8.5-10.1); Carbon Dioxide 28 mmol/L (21-32); Chloride 110 mmol/L (98-107); GFR African American 188 mL/min; GFR Non-African American 155 mL/min; Glucose 121 mg/dL (74-106); Potassium 3.1 mmol/L (3.5-5.1); Sodium 142 mmol/L (136-145)
[2019-03-14 09:13] LABS: Alkaline Phosphatase 83 U/L (45-117); Bilirubin, Total 0.5 mg/dL (0.2-1.0); Total Protein 4.5 g/dL (6.4-8.2)
[2019-03-14 13:00] VITALS: BP 121/65
[2019-03-14] MEDS ORDERED: POTASSIUM EFFERVESENT TAB 25 MEQ PO ONE (13:45)
[2019-03-14 17:00] VITALS: BP 129/72
--- NOTE | 2019-03-14 19:00 | NUR ---
Opening Shift Note Assumed care of patient, awake and alert. No S/S of distress/SOB or pain. Instructed on POC and to call for assist PRN, will continue to monitor for changes Q1hr and PRN.
--- NOTE | 2019-03-14 19:05 | NUR ---
Endorsed care to NOC RN.
[2019-03-14 22:03] VITALS: BP 107/81
--- NOTE | 2019-03-14 22:39 | NUR ---
IV insertion IV access to right AC obtained, via clean sterile technique by inserting 22 gauge catheter after first attempt. IV secured properly. No trauma to site. Patient tolerated procedure well.
[2019-03-15] MEDS: HYDROmorphone HCL 2 MG/ML VL IV PRN ×3 (01:14→22:09)
[2019-03-15 05:05] VITALS: BP 116/66
[2019-03-15] MEDS: metroNIDAZOLE 500MG/100ML 100 ML IV SCH (05:33)
--- NOTE | 2019-03-15 06:29 | NUR ---
IV removal d/t infiltration: IV to Right AC DC'd with sterile technique, catheter fully intact. Pressure dressing applied to site. Patient tolerated procedure well.
[2019-03-15 06:57] LABS: Basophils # (auto) 0 uL; Basophils % (auto) 0.3 % (0.0-2.0); Eosinophils # (auto) 0.1 uL; Eosinophils % (auto) 1.5 % (0.0-7.0); Hematocrit 33.9 % (36.0-46.0); Hemoglobin 11.4 g/dL (12.2-16.2); Lymphocytes # (auto) 0.8 uL; Lymphocytes % (auto) 10.8 % (10.0-50.0); Mean Corpuscular Hemoglobin 30.1 pg (28.0-32.0); Mean Corpuscular Hgb Conc. 33.7 g/dL (32.0-36.0); Mean Corpuscular Volume 89.3 fL (80.0-100.0); Monocytes # (auto) 0.5 uL; Monocytes % (auto) 6.8 % (0.0-12.0); Neutrophils # (auto) 6.3 uL; Neutrophils % (auto) 80.6 % (37.0-80.0); Nucleated Red Blood Cells % 0.1 %; Platelet Count (auto) 164 10^3/uL (140-450); Red Blood Cells 3.79 10^6/uL (4.0-5.20); Red Cell Distribution Width 17.8 % (11.8-14.3); White Blood Cell 7.8 10^3/uL (4.4-10.8)
[2019-03-15 07:01] LABS: Calcium 7.5 mg/dL (8.5-10.1); Potassium 3.7 mmol/L (3.5-5.1)
[2019-03-15 07:07] LABS: Albumin 1.8 g/dL (3.4-5.0); BUN/Creatinine Ratio 2.7; Bilirubin, Total 0.3 mg/dL (0.2-1.0); Total Protein 4.5 g/dL (6.4-8.2)
--- NOTE | 2019-03-15 07:07 | NUR ---
Opening Shift Note Assumed care of patient, awake and alert. No S/S of distress/SOB. Instructed on POC and to call for assist PRN, will continue to monitor for changes Q1hr and PRN. Bed set in lowest locked position with side rails up x 2 for safety.
[2019-03-15] MEDS: SODIUM CHLORIDE 0.9% 1,000 ML IV SCH ×2 (07:30→17:30)
[2019-03-15] MEDS: cefTRIAXone 1GM/50ML D5W 50 ML IV SCH (08:00)
[2019-03-15 08:03] VITALS: BP 132/81
[2019-03-15 09:00] VITALS: BP 132/81
[2019-03-15] MEDS ORDERED: DIPHENOXYLATE W/ATROPINE 2.5 MG TAB PO PRN (09:45)
--- NOTE | 2019-03-15 09:49 | NUR ---
, Dr. Cartagena at bedside Updated pt on POC.
--- NOTE | 2019-03-15 10:17 | NUR ---
PT 1st AM visit, patient requested to do BM before doing PT. 2nd AM visit, patient still on BP. Addendum: 03/15/19 at 1018 by AMY SAENZ PTT Amended: Links added.
[2019-03-15] MEDS: HYDROcodone-ACET 5/325MG TAB PO PRN (10:55)
[2019-03-15] MEDS: POTASSIUM CHL 20 Meq TABLET PO SCH (10:55)
[2019-03-15] MEDS: CEPHALEXIN 250 MG CAP PO SCH ×2 (12:11→17:39)
[2019-03-15 13:00] VITALS: BP 135/79
--- NOTE | 2019-03-15 13:55 | NUR ---
, Dr. Bailey at bedside For GI consult. Updated pt and family on POC. Awaiting results for stool and C. Diff cultures.
--- NOTE | 2019-03-15 14:38 | NUR ---
Nutrition Follow-up Notes Wt.: 80.4 kg as of yesterday. Pt's with PT at bedside when rounded this morning. Pt's on oxygen via nasal cannula, no signs of distress noted earlier, currently on Mechanical Soft Cardiac: 2 gms Na, Low Chol, Low Fat diet with inadequate PO intake aeb 25% ave. consumed meals (x6) in last 2.5 days. Noted pt's for active GI, Surgical and Cardiology consults. Est. Needs: 1400 kcal to 1750 kcal (20-25 kcal/kgBW), 55 gms to 69 gms pro (0.8-1.0 gms/kgBW). Will continue to monitor pertinent labs and reassess nutrient need prn Labs: Cl 108 H, BUN 1 L, Cr 0.37 L, Ca 7.5 L; Tpro 4.5 L, Alb 1.8 L. Skin: Josue scale 17, mod risk, pt's medial abdomen incision dry and intact per technical internship. GI: Pt had 3 ml stool output this morning per technical internship. PES: Partially resolved: Increased nutrient needs r/t altered GI functions aeb Acute abdominal pain,Small bowel obstruction, partial, NPO. Altered nutrition related lab values r/t current/chronic medical condition aeb hyperglycemia, hyponatremia, hypokalemia, elev. renal labs, ALP, hypocalcemia Will continue to monitor PO intake, skin status, pertinent labs and weight trend. F/u in 2 to 3 days. Rec.: 1.) If Albumin continues trending down, consider Prostat 1 pkt BID. 2.) Continue close supervision and feeding assistance prn during meals. 3.) If pt's PO intake remains inadequate (<75%), consider Ensure High Prot 1 carton BID. 4.) Refer to RD for further nutrition educ. and weight monitoring upon discharge. 3.) Continue current plan of care.
--- NOTE | 2019-03-15 15:52 | NUR ---
Midline Placement: Patient educated on need for midline placement. All risks and benefits explained and all questions and concerns addresses prior to procedure. 18g/10cm midline inserted via right basilic vein using Ultrasound. Sterile technique utilized. Blood return obtained from lumen and flushed easily with NS using proper technique. Midline secured with saline lock; biodisc and occlusive dressing applied. Primary RN notified. Midline lot #[id number]
--- NOTE | 2019-03-15 16:00 | NUR ---
Spoke to Dr. Mitzi CORTES Via telephone. New orders received, read back and verified.
[2019-03-15] MEDS: ONDANSETRON HCL 4 MG/2 ML VIAL IV PRN ×2 (16:22→22:09)
[2019-03-15 17:00] VITALS: BP 110/67
[2019-03-15] MEDS ORDERED: FAMOTIDINE 20 MG TAB PO SCH (22:00)
[2019-03-15] MEDS ORDERED: metroNIDAZOLE 500 MG TAB PO SCH (22:00)
[2019-03-15 22:11] VITALS: BP 115/66
[2019-03-16] MEDS: SODIUM CHLORIDE 0.9% 1,000 ML IV SCH ×2 (03:34→13:30)
[2019-03-16] MEDS: HYDROmorphone HCL 2 MG/ML VL IV PRN ×2 (03:54→10:47)
[2019-03-16] MEDS: ONDANSETRON HCL 4 MG/2 ML VIAL IV PRN (04:02)
[2019-03-16 05:12] VITALS: BP 114/69
[2019-03-16 07:37] LABS: Hematocrit 30.1 % (36.0-46.0); Hemoglobin 10.1 g/dL (12.2-16.2); Mean Corpuscular Hemoglobin 30.1 pg (28.0-32.0); Mean Corpuscular Hgb Conc. 33.5 g/dL (32.0-36.0); Mean Corpuscular Volume 89.9 fL (80.0-100.0); Platelet Count (auto) 177 10^3/uL (140-450); Red Blood Cells 3.35 10^6/uL (4.0-5.20); Red Cell Distribution Width 17.8 % (11.8-14.3); White Blood Cell 7.2 10^3/uL (4.4-10.8)
[2019-03-16 07:40] LABS: Basophils % (manual) 0 (0.0-2.0); Blast Cells 0; Metamyelocytes % 0; Myelocytes % 0; Promyelocytes % 0; Reactive Lymphocytes 0
[2019-03-16 07:50] LABS: Albumin 1.7 g/dL (3.4-5.0); Calcium 7.3 mg/dL (8.5-10.1); Potassium 3.9 mmol/L (3.5-5.1)
[2019-03-16 07:53] LABS: BUN/Creatinine Ratio 2.7; Bilirubin, Total 0.3 mg/dL (0.2-1.0); Total Protein 4.3 g/dL (6.4-8.2)
[2019-03-16 07:58] LABS: Band Neutrophils % (manual) 3; Eosinophils % (manual) 2 (0-7); Lymphocytes % (manual) 6 (10.0-50.0); Monocytes % (manual) 9 (0-12)
--- NOTE | 2019-03-16 08:00 | NUR ---
ASSESSMENT NOTE PT IS ALERT ORIENTED X4, RESTING IN BED COMFORTABLY NO DISTRESS NOTED ABLE TO VERBALIS HER DEMANDS, SELF REPOSITION, PORTER CATHETER TO GRAVITY, DRY CLEAN DRESSING NOTED AT THE MID LINE INCISION DRY AND INTACT, ON PAIN MANAGEMENT NEEDED, CALL LIGHT WITHIN REACH
[2019-03-16 08:30] VITALS: BP 106/65
[2019-03-16] MEDS ORDERED: cefTRIAXone 1GM/50ML D5W 50 ML IV SCH (09:00)
[2019-03-16] MEDS: POTASSIUM CHL 20 Meq TABLET PO SCH (09:16)
[2019-03-16] MEDS ORDERED: FAMOTIDINE (10MG/ML) 2ML VL IV SCH (10:00)
--- NOTE | 2019-03-16 11:40 | NUR ---
DR LU AT BED SIDE FOLLOWING UP ON PT WITH DISCHARGE INSTRUCTION, PT AGREE TO BE TRANSFER TO [facility] AND FOLLOW UP WITH DR MCCARTHY AN OUT PATIENT.
[2019-03-16 12:40] VITALS: BP 128/75
[2019-03-16] MEDS ORDERED: PANTOPRAZOLE 40 MG TAB PO SCH (13:15)
--- NOTE | 2019-03-16 15:00 | NUR ---
TRANSFORATION ARE HERE TO VISUAL EDUCATOR PT
--- NOTE | 2019-03-16 15:00 | NUR ---
PORTER CATHETER PT REFUSED TO HAVE IT REMOVED, CALLED DR LU, SAID LEAVE IT IN
[2019-03-16] MEDS: HYDROcodone-ACET 5/325MG TAB PO PRN (15:29)
--- NOTE | 2019-03-16 15:30 | NUR ---
CALL [facility] SPOKE WITH CAROLINA Isabel RN, REPORT GIVEN TO HER
--- NOTE | 2019-03-16 15:31 | NUR ---
AMARA Isabel RN FROM [facility] MADE AWARE THAT PT REFUSED TO HAVE THE PORTER TO BE REMOVED
--- NOTE | 2019-03-16 16:00 | NUR ---
PT LEFT BY MEG, NO DISTRESS NOTED, ALONG WITH AL THE BELONGING, UPPER DENTURE, EYE GLASSES, PHONE, AND CLOTHING, PT VERBALIS THAT HER SON JOSE MIGHT STOP BY, AND WE NEED TO TELL HIM THAT SHE LEFT
--- NOTE | 2019-03-16 16:01 | NUR ---
Discharge planning per consult, patient has orders to dc to [facility] [phone]. Referral sent, placed a follow up call, spoke with Khadijah and was advised that they will accept patient into room [address] Cannon. Transportation was arranged with the General [phone] and milk pickup driver time is between 3-4. Nurse Beth was advised of dc plan. Addendum: 03/16/19 at 1603 by SOFY DUKE Amended: Links added.
[2019-03-16] MEDS ORDERED: Ensure HIGH Protein Vanilla 8oz Bottle PO SCH (18:00)
== END 2019-03-16 16:00 | DRG 336 ==
LOC: ER 23:34 → TELE 23:35 → TELE-EAST 03-06 08:40
PROVIDERS: ADMIT Nurse Practitioner Family; ATTEND Family Medicine
PROC: 0D9670Z Drainage of Stomach with Drainage Device, Via Natural or Artificial Opening (ICD-10-PCS; 2019-03-06)
PROC: 0DNB0ZZ Release Ileum, Open Approach (ICD-10-PCS; 2019-03-09)
PROC: 0WQF0ZZ Repair Abdominal Wall, Open Approach (ICD-10-PCS; principal; 2019-03-09 07:35)
DX: K56.600 Partial intestinal obstruction, unspecified as to cause (principal); N39.0 Urinary tract infection, site not specified; K46.0 Unspecified abdominal hernia with obstruction, without gangrene; I10 Essential (primary) hypertension; E78.5 Hyperlipidemia, unspecified; I25.10 Atherosclerotic heart disease of native coronary artery without angina pectoris; K66.0 Peritoneal adhesions (postprocedural) (postinfection); K43.9 Ventral hernia without obstruction or gangrene; K80.20 Calculus of gallbladder without cholecystitis without obstruction; E86.0 Dehydration; E87.6 Hypokalemia; Z79.899 Other long term (current) drug therapy; Z86.718 Personal history of other venous thrombosis and embolism; Z86.73 Personal history of transient ischemic attack (TIA), and cerebral infarction without residual deficits; Z86.711 Personal history of pulmonary embolism; Z88.5 Allergy status to narcotic agent; Z90.49 Acquired absence of other specified parts of digestive tract
CPT/HCPCS: 36415; 71045; 74018; 74176; 74250; 80048; 80053; 81001; 83690; 83735; 84484; 84702; 85007; 85025; 85027; 85610; 85730; 86850; 86900; 86901; 87045; 87086; 87427; 87493; 93005; 97110; 97116; 97163; 97530; G0378; J0330; J0690; J0696; J2001; J2250; J2405; J3480; J3490

== ENCOUNTER → 2019-06-28 | Outpatient (CLI) | payer MEDICARE, OTHER ==
[~2019-06-28] MED LIST: ACET-1156 PO; APIX5TAB PO; BISA10SU45 RE; CAR3125T PO; CARV6.25 PO; CHOL20007 OR; CYAN500L3 PO; DOCU100T15 PO; EZET10TA22 PO; FAM20T PO; FLEETMIN PR; FOLI1TAB6 PO; HYDR-4833 PO; HYDR12.56 PO; LACTCAP35 OR; LEUC5TAB PO; LEVO100T8 PO; LOPE7.5C PO; LOSA-69 PO; MAGN400S25 PO; MESA0.37 PO; METH50IN6 IJ; MULT-688 PO; NITR0.4S29 SL; ONDA-144 PO; POLY33504 PO; POTA10TA51 PO; ROSU10TA16 PO
[2019-06-28 10:10] LABS: Basophils # (auto) 0 uL; Basophils % (auto) 0.8 % (0.0-2.0); Eosinophils # (auto) 0.2 uL; Eosinophils % (auto) 3.7 % (0.0-7.0); Hematocrit 38.7 % (36.0-46.0); Hemoglobin 12.7 g/dL (12.2-16.2); Lymphocytes # (auto) 0.7 uL; Lymphocytes % (auto) 15.5 % (10.0-50.0); Mean Corpuscular Hemoglobin 29.6 pg (28.0-32.0); Mean Corpuscular Hgb Conc. 32.9 g/dL (32.0-36.0); Monocytes # (auto) 0.4 uL; Monocytes % (auto) 8.1 % (0.0-12.0); Neutrophils # (auto) 3.2 uL; Neutrophils % (auto) 71.9 % (37.0-80.0); Platelet Count (auto) 295 10^3/uL (140-450); Red Cell Distribution Width 16.5 % (11.8-14.3); White Blood Cell 4.5 10^3/uL (4.4-10.8)
[2019-06-28 10:31] LABS: Albumin 3.4 g/dL (3.4-5.0); Calcium 9.4 mg/dL (8.5-10.1); Potassium 3.8 mmol/L (3.5-5.1)
[2019-06-28 10:33] LABS: Albumin 3.4 g/dL (3.4-5.0); Calcium 9.4 mg/dL (8.5-10.1); Potassium 3.8 mmol/L (3.5-5.1)
[2019-06-28 10:35] LABS: BUN/Creatinine Ratio 18.9; Phosphorus 3.3 mg/dL (2.5-4.90)
[2019-06-28 10:37] LABS: BUN/Creatinine Ratio 20.8; Bilirubin, Total 0.7 mg/dL (0.2-1.0); Total Protein 7.5 g/dL (6.4-8.2)
== END | disposition home or self-care (01) ==
LOC: LAB 09:35
PROVIDERS: ATTEND Internal Medicine
DX: I10 Essential (primary) hypertension (principal); Z79.899 Other long term (current) drug therapy
CPT/HCPCS: 36415; 80053; 80061; 80069; 83036; 84439; 84443; 85025; 86431

== ENCOUNTER → 2019-10-05 | Outpatient (CLI) | payer MEDICARE, OTHER ==
[~2019-10-05] MED LIST changes: -FAM20T PO; +FAMO20TA10 PO
[2019-10-05 11:09] LABS: BUN/Creatinine Ratio 17.4; Calcium 8.7 mg/dL (8.5-10.1); Potassium 3.6 mmol/L (3.5-5.1)
== END | disposition home or self-care (01) ==
LOC: LAB 10:32
PROVIDERS: ATTEND Internal Medicine
DX: E03.9 Hypothyroidism, unspecified (principal)
CPT/HCPCS: 36415; 80048; 84439; 84443

== ENCOUNTER → 2019-11-02 | Outpatient (CLI) | payer MEDICARE, OTHER ==
[~2019-11-02] MED LIST changes: +FAM20T PO; -FAMO20TA10 PO
[2019-11-02 15:19] LABS: Urine Bacteria NONE SEEN /hpf (None Seen); Urine Blood Negative /uL (Negative); Urine Mucus FEW (None Seen); Urine Specific Gravity 1.017 (1.001-1.035); Urine WBC 2 /hpf (0 - 5)
== END | disposition home or self-care (01) ==
LOC: LAB 15:06
PROVIDERS: ATTEND Internal Medicine Gastroenterology
DX: R10.30 Lower abdominal pain, unspecified (principal)
CPT/HCPCS: 81001

== ENCOUNTER → 2019-11-16 | Outpatient (CLI) | payer MEDICARE, OTHER ==
[~2019-11-16] MED LIST changes: -FAM20T PO; +FAMO20TA10 PO
[2019-11-16 09:26] LABS: Urine Bacteria FEW /hpf (None Seen); Urine Blood Negative /uL (Negative); Urine Mucus FEW (None Seen); Urine Specific Gravity 1.028 (1.001-1.035); Urine WBC 13 /hpf (0 - 5)
== END | disposition home or self-care (01) ==
LOC: LAB 08:45
PROVIDERS: ATTEND Internal Medicine
DX: E03.9 Hypothyroidism, unspecified (principal); I10 Essential (primary) hypertension; Z79.899 Other long term (current) drug therapy
CPT/HCPCS: 36415; 81001; 84439; 84443; 87086

== ENCOUNTER → 2020-06-07 | Outpatient (CLI) | payer MEDICARE, OTHER | END | disposition home or self-care (01) | LOC: LAB 10:19 | PROVIDERS: ATTEND Nurse Practitioner | DX: E03.9 Hypothyroidism, unspecified (principal) | CPT/HCPCS: 36415; 84443 ==

== ENCOUNTER 2020-07-27 11:20 | Inpatient (IN) | payer MEDICARE, OTHER ==
[~2020-07-27] VITALS: Ht 160 cm; Wt 78.6 kg
[2020-07-27] MEDS ORDERED: ONDANSETRON HCL 4 MG/2 ML VIAL IV ONE (12:30)
[2020-07-27] MEDS ORDERED: hydrALAZINE HCL 20 MG/ML VL IV ONE (12:30)
[2020-07-27] MEDS ORDERED: KETOROLAC TROMETH 30 MG/ML 1ML VIAL IV ONE (12:30)
[2020-07-27 12:50] LABS: Basophils # (auto) 0 10 ^3/uL (0-0.2); Basophils % (auto) 0.2 % (0.0-2.0); Eosinophils # (auto) 0 10 ^3/uL (0-0.8); Eosinophils % (auto) 0.1 % (0.0-7.0); Hematocrit 43.9 % (36.0-46.0); Lymphocytes # (auto) 0.7 10 ^3/uL (0.4-5.4); Mean Corpuscular Hemoglobin 30.9 pg (28.0-32.0); Mean Corpuscular Hgb Conc. 34.2 g/dL (32.0-36.0); Mean Corpuscular Volume 90.3 fL (80.0-100.0); Monocytes # (auto) 0.4 10 ^3/uL (0-1.3); Monocytes % (auto) 4.1 % (0.0-12.0); Neutrophils # (auto) 9.7 10 ^3/uL (1.6-8.6); Neutrophils % (auto) 89.6 % (37.0-80.0); Platelet Count (auto) 280 10^3/uL (140-450); Red Blood Cells 4.86 10^6/uL (4.0-5.20); Red Cell Distribution Width 14.9 % (11.8-14.3); White Blood Cell 10.8 10^3/uL (4.4-10.8)
[2020-07-27 13:07] LABS: Chloride 100 mmol/L (98-107); Potassium 3.6 mmol/L (3.5-5.1); Sodium 137 mmol/L (136-145)
[2020-07-27 13:17] LABS: Alanine Aminotransferase 28 U/L (13-56); Albumin 3.8 g/dL (3.4-5.0); Alkaline Phosphatase 156 U/L (45-117); Amylase 38 U/L (25-115); Anion Gap 7 (5-15); Aspartate Aminotransferase 21 U/L (15-37); BUN/Creatinine Ratio 24.6; Bilirubin, Total 0.7 mg/dL (0.2-1.0); Blood Urea Nitrogen 15 mg/dL (7-18); Calcium 9.6 mg/dL (8.5-10.1); Carbon Dioxide 30 mmol/L (21-32); GFR African American 122 mL/min; GFR Non-African American 101 mL/min; Glucose 142 mg/dL (74-106); Lipase 53 U/L (73-393); Magnesium 2.3 mg/dL (1.6-2.6); Total Protein 7.9 g/dL (6.4-8.2)
[2020-07-27] MEDS ORDERED: GASTROGRAFIN 120 ML SOL ONE (15:47)
[2020-07-27] MEDS ORDERED: PIPERACILLIN-TAZOB 3.375GM 100 ML IV ONE (16:00)
[2020-07-27] MEDS ORDERED: MORPHINE SULF INJ 2 MG/ML SYRINGE 1ML IV PRN ×2 (16:30→16:45)
[2020-07-27] MEDS ORDERED: NITROGLYCERIN 0.4 MG SL TAB SL PRN ×2 (16:30→18:45)
[2020-07-27] MEDS ORDERED: ONDANSETRON HCL 4 MG/2 ML VIAL IV PRN ×2 (17:45→18:45)
[2020-07-27] MEDS: KETOROLAC TROMETH 30 MG/ML 1ML VIAL IV PRN (17:58)
[2020-07-27] MEDS ORDERED: PANTOPRAZOLE 40 MG/10 ML VIAL INJ IV ONE (18:45)
[2020-07-27] MEDS ORDERED: SODIUM CHLORIDE 0.9% 1,000 ML IV SCH (18:45)
[2020-07-27] MEDS ORDERED: LORazepam 0.5 MG TAB PO PRN (18:45)
[2020-07-27] MEDS ORDERED: DOCUSATE SOD 100 MG CAP PO PRN (18:45)
[2020-07-27 19:24] LABS: Cholesterol 110 mg/dL (< 200)
[2020-07-27 19:27] LABS: HDL Cholesterol 48 mg/dL (40-59); LDL Cholesterol 51 mg/dL (< 100); Triglycerides 80 mg/dL (< 150)
[2020-07-27] MEDS ORDERED: METH2.5T PO (19:35)
[2020-07-27] MEDS ORDERED: ROSU1TAB14 PO (19:36)
[2020-07-27] MEDS ORDERED: DULO60CA PO (19:37)
[2020-07-27 20:00] VITALS: BP 131/72
[2020-07-27 22:00] VITALS: BP 131/72
[2020-07-27] MEDS: metroNIDAZOLE 500MG/100ML 100 ML IV SCH (22:39)
[2020-07-27 23:00] VITALS: BP 131/72
[2020-07-28] MEDS: METOCLOPRAMIDE HCL 5MG/ml INJ 2ml VIAL IV PRN ×2 (03:24→11:48)
[2020-07-28 05:00] VITALS: BP 128/71
[2020-07-28 05:54] LABS: Hematocrit 46.6 % (36.0-46.0); Hemoglobin 15.9 g/dL (12.2-16.2); Mean Corpuscular Hemoglobin 30.7 pg (28.0-32.0); Mean Corpuscular Volume 90.2 fL (80.0-100.0); Platelet Count (auto) 288 10^3/uL (140-450); Red Blood Cells 5.16 10^6/uL (4.0-5.20); Red Cell Distribution Width 15.5 % (11.8-14.3)
[2020-07-28 06:09] LABS: Basophils % (manual) 0 (0.0-2.0); Blast Cells 0; Eosinophils % (manual) 0 (0-7); Myelocytes % 0; Promyelocytes % 0; Reactive Lymphocytes 0
[2020-07-28 06:12] LABS: INR 1.34 (0.9-1.15); Partial Thromboplastin Time 29.5 sec (23.0-31.2)
[2020-07-28] MEDS: metroNIDAZOLE 500MG/100ML 100 ML IV SCH ×3 (06:13→21:13)
[2020-07-28] MEDS: KETOROLAC TROMETH 30 MG/ML 1ML VIAL IV PRN ×2 (06:13→12:06)
[2020-07-28 06:22] LABS: Potassium 3.2 mmol/L (3.5-5.1)
[2020-07-28 06:28] LABS: Albumin 3.7 g/dL (3.4-5.0); BUN/Creatinine Ratio 42.7; Bilirubin, Total 0.7 mg/dL (0.2-1.0); Magnesium 2.6 mg/dL (1.6-2.6); Phosphorus 3.7 mg/dL (2.5-4.90)
[2020-07-28 06:58] LABS: Band Neutrophils % (manual) 42; Lymphocytes % (manual) 18 (10.0-50.0); Metamyelocytes % 1; Monocytes % (manual) 18 (0-12)
[2020-07-28 08:46] VITALS: BP 145/85
[2020-07-28] MEDS: cefTRIAXone 1GM/50ML D5W 50 ML IV SCH (09:00)
[2020-07-28] MEDS ORDERED: ENOXAPARIN SOD 40 MG/0.4 ML SYRINGE SC SCH (10:00)
[2020-07-28] MEDS ORDERED: POTASSIUM CHL 20MEQ/100ML 100 ML IV ONE (10:30)
[2020-07-28] MEDS ORDERED: POTASSIUM CHLORIDE 20 MEQ in D5W 5% 1,000 ML IV SCH (10:30)
[2020-07-28] MEDS: PANTOPRAZOLE 40 MG/10 ML VIAL INJ IV SCH (11:47)
[2020-07-28] MEDS ORDERED: ceFAZolin 1GM/50ML 50 ML IV ONE (12:06)
[2020-07-28] MEDS ORDERED: SUCCINYLCHOLINE CHLORIDE 20 MG/ML 10ML VIAL IV ONE (12:06)
[2020-07-28] MEDS ORDERED: MIDAZOLAM HCL 1MG/1ML-2 ML VIAL ONE (12:08)
[2020-07-28] MEDS ORDERED: fentaNYL CITRATE 100 MCG/2 ML VL ONE (12:08)
[2020-07-28] MEDS ORDERED: BUPIVACAINE 0.25% INJ 50ML VIAL ONE (12:09)
[2020-07-28] MEDS ORDERED: LIDOCAINE W/ EPINEPHRINE 1% 20ML VIAL ONE (12:09)
[2020-07-28] MEDS ORDERED: ROCURONIUM 10MG/ML 10ML VIAL IV ONE (12:11)
[2020-07-28 12:36] VITALS: BP 154/86
[2020-07-28] MEDS ORDERED: NEOSTIGMINE 1 MG/ML INJ (10mg/10ML VIAL) ONE (13:41)
[2020-07-28] MEDS ORDERED: ETOMIDATE (2MG/ML) 20ML VIAL IV ONE (13:42)
[2020-07-28] MEDS ORDERED: ONDANSETRON HCL 4 MG/2 ML VIAL ONE (13:42)
[2020-07-28] MEDS ORDERED: HYDROCORTISONE SOD SUCC 100 MG/2ML INJ VIAL ONE (13:42)
[2020-07-28] MEDS ORDERED: GLYCOPYRROLATE 0.2 MG/ML 1ML VIAL ONE (13:42)
[2020-07-28] MEDS ORDERED: DexAMETHasone SOD PHOS 10MG/1ML VIAL INJ ONE (13:52)
[2020-07-28] MEDS: D5W/SOD CHL 0.45%/KCL 20MEQ 1,000 ML IV SCH ×2 (14:00→17:57)
[2020-07-28] MEDS ORDERED: ePHEDrine SULFATE 50 MG/ML AMP IV PRN (14:15)
[2020-07-28] MEDS ORDERED: LABETALOL HCL 5 MG/ML 4ML SYRINGE IV PRN (14:15)
[2020-07-28] MEDS ORDERED: HYDROmorphone HCL 2 MG/ML VL IV PRN (14:15)
[2020-07-28 16:30] VITALS: BP 110/56
[2020-07-28 22:00] VITALS: BP 122/60
[2020-07-28] MEDS: HYDROmorphone HCL 2 MG/ML VL IV PRN (22:34)
[2020-07-28] MEDS: ALUM & MAG HYDROX-SIMETH LIQ(MAALOX) 30 ML PO PRN (23:04)
[2020-07-29] MEDS: HYDROmorphone HCL 2 MG/ML VL IV PRN ×4 (03:45→22:12)
[2020-07-29 05:00] VITALS: BP 149/62
[2020-07-29] MEDS: metroNIDAZOLE 500MG/100ML 100 ML IV SCH ×3 (05:32→21:46)
[2020-07-29 05:48] LABS: Hemoglobin 12.9 g/dL (12.2-16.2); Mean Corpuscular Hemoglobin 31.1 pg (28.0-32.0); Mean Corpuscular Hgb Conc. 34.1 g/dL (32.0-36.0); Mean Corpuscular Volume 91.4 fL (80.0-100.0); Platelet Count (auto) 207 10^3/uL (140-450); Red Blood Cells 4.16 10^6/uL (4.0-5.20); Red Cell Distribution Width 15.6 % (11.8-14.3)
[2020-07-29 05:59] LABS: White Blood Cell 1.2 10^3/uL (4.4-10.8)
[2020-07-29 06:01] LABS: Basophils % (manual) 0 (0.0-2.0); Blast Cells 0; Promyelocytes % 0
[2020-07-29 06:21] LABS: INR 1.27 (0.9-1.15)
[2020-07-29 06:32] LABS: BUN/Creatinine Ratio 42.6; Calcium 7.6 mg/dL (8.5-10.1); Phosphorus 1.2 mg/dL (2.5-4.90)
[2020-07-29 06:34] LABS: Albumin 2.7 g/dL (3.4-5.0); Bilirubin, Total 0.6 mg/dL (0.2-1.0); Total Protein 5.8 g/dL (6.4-8.2)
[2020-07-29 06:54] LABS: Band Neutrophils % (manual) 44; Eosinophils % (manual) 3 (0-7); Lymphocytes % (manual) 27 (10.0-50.0); Metamyelocytes % 4; Monocytes % (manual) 15 (0-12); Myelocytes % 1; Reactive Lymphocytes 1
[2020-07-29] MEDS: METOCLOPRAMIDE HCL 5MG/ml INJ 2ml VIAL IV PRN ×4 (06:55→21:47)
[2020-07-29 08:00] VITALS: BP 120/69
[2020-07-29] MEDS ORDERED: POTASSIUM PHOSPHATE 26.4 MEQ in SODIUM CHL 0.9% 100 ML IV ONE (08:15)
[2020-07-29] MEDS: cefTRIAXone 1GM/50ML D5W 50 ML IV SCH (09:33)
[2020-07-29] MEDS: PANTOPRAZOLE 40 MG/10 ML VIAL INJ IV SCH (09:34)
[2020-07-29 12:00] VITALS: BP 166/85
[2020-07-29] MEDS ORDERED: METOPROLOL TARTRATE 1MG/1ML-5ML VIAL IV PRN (12:45)
[2020-07-29 14:37] VITALS: BP 109/56
[2020-07-29 16:00] VITALS: BP 139/64
[2020-07-29] MEDS: D5W/SOD CHL 0.45%/KCL 20MEQ 1,000 ML IV SCH (16:26)
[2020-07-29] MEDS: ACETAMINOPHEN 325 MG TAB PO PRN (19:58)
[2020-07-29] MEDS: METOPROLOL TARTRATE 25 MG TAB PO SCH (21:55)
[2020-07-30 01:07] VITALS: BP 116/54
[2020-07-30 05:00] VITALS: BP 114/63
[2020-07-30] MEDS: metroNIDAZOLE 500MG/100ML 100 ML IV SCH ×3 (05:47→22:08)
[2020-07-30] MEDS: D5W/SOD CHL 0.45%/KCL 20MEQ 1,000 ML IV SCH ×2 (05:48→19:20)
[2020-07-30 07:59] LABS: Hemoglobin 11.5 g/dL (12.2-16.2); Mean Corpuscular Hemoglobin 31.1 pg (28.0-32.0); Mean Corpuscular Hgb Conc. 33.9 g/dL (32.0-36.0); Mean Corpuscular Volume 91.8 fL (80.0-100.0); Platelet Count (auto) 172 10^3/uL (140-450); Red Cell Distribution Width 15.4 % (11.8-14.3); White Blood Cell 5.6 10^3/uL (4.4-10.8)
[2020-07-30 08:00] VITALS: BP 114/54
[2020-07-30 08:04] LABS: Basophils % (manual) 0 (0.0-2.0); Blast Cells 0; Myelocytes % 0; Promyelocytes % 0; Reactive Lymphocytes 0
[2020-07-30 08:18] LABS: Albumin 2.3 g/dL (3.4-5.0); Calcium 7.8 mg/dL (8.5-10.1); Potassium 3.4 mmol/L (3.5-5.1)
[2020-07-30 08:22] LABS: BUN/Creatinine Ratio 45.1; Bilirubin, Total 0.8 mg/dL (0.2-1.0); Magnesium 2.4 mg/dL (1.6-2.6); Phosphorus 1.1 mg/dL (2.5-4.90); Total Protein 5.2 g/dL (6.4-8.2)
[2020-07-30 08:45] LABS: Band Neutrophils % (manual) 32; Eosinophils % (manual) 3 (0-7); Lymphocytes % (manual) 15 (10.0-50.0); Metamyelocytes % 3; Monocytes % (manual) 7 (0-12)
[2020-07-30] MEDS: PANTOPRAZOLE 40 MG/10 ML VIAL INJ IV SCH (10:33)
[2020-07-30] MEDS: cefTRIAXone 1GM/50ML D5W 50 ML IV SCH (10:33)
[2020-07-30] MEDS: ENOXAPARIN SOD 40 MG/0.4 ML SYRINGE SC SCH (10:36)
[2020-07-30] MEDS: METOPROLOL TARTRATE 25 MG TAB PO SCH ×2 (10:36→22:00)
[2020-07-30] MEDS: HYDROmorphone HCL 2 MG/ML VL IV PRN (10:54)
[2020-07-30 12:00] VITALS: BP 100/59
[2020-07-30] MEDS ORDERED: POTASSIUM PHOSPHATE 44 MEQ in D5W 5% 250 ML IV ONE (12:45)
[2020-07-30 16:00] VITALS: BP 107/62
[2020-07-30] MEDS: ALUM & MAG HYDROX-SIMETH LIQ(MAALOX) 30 ML PO PRN (20:46)
[2020-07-30] MEDS: ACETAMINOPHEN/CODEINE#3 (300/30mg) TAB PO PRN (20:46)
[2020-07-30 22:00] VITALS: BP 145/75
[2020-07-30] MEDS: LOPERAMIDE HCL 2 MG CAP PO PRN (22:50)
[2020-07-31] MEDS: ACETAMINOPHEN/CODEINE#3 (300/30mg) TAB PO PRN ×5 (01:13→20:10)
[2020-07-31] MEDS: LOPERAMIDE HCL 2 MG CAP PO PRN ×3 (01:14→09:31)
[2020-07-31 05:00] VITALS: BP 132/71
[2020-07-31] MEDS: metroNIDAZOLE 500MG/100ML 100 ML IV SCH ×3 (05:49→21:12)
[2020-07-31 06:11] LABS: Basophils # (auto) 0 10 ^3/uL (0-0.2); Basophils % (auto) 0.4 % (0.0-2.0); Eosinophils # (auto) 0.3 10 ^3/uL (0-0.8); Hematocrit 34.5 % (36.0-46.0); Hemoglobin 11.6 g/dL (12.2-16.2); Lymphocytes # (auto) 0.9 10 ^3/uL (0.4-5.4); Lymphocytes % (auto) 10.9 % (10.0-50.0); Mean Corpuscular Hemoglobin 31.5 pg (28.0-32.0); Mean Corpuscular Hgb Conc. 33.6 g/dL (32.0-36.0); Mean Corpuscular Volume 93.7 fL (80.0-100.0); Monocytes # (auto) 0.5 10 ^3/uL (0-1.3); Neutrophils # (auto) 6.8 10 ^3/uL (1.6-8.6); Neutrophils % (auto) 79.7 % (37.0-80.0); Nucleated Red Blood Cells % 0.1 %; Platelet Count (auto) 163 10^3/uL (140-450); Red Blood Cells 3.69 10^6/uL (4.0-5.20); Red Cell Distribution Width 15.6 % (11.8-14.3); White Blood Cell 8.5 10^3/uL (4.4-10.8)
[2020-07-31 06:37] LABS: Albumin 2.1 g/dL (3.4-5.0); Bilirubin, Total 0.5 mg/dL (0.2-1.0); Calcium 7.8 mg/dL (8.5-10.1); Magnesium 2.4 mg/dL (1.6-2.6); Phosphorus 1.5 mg/dL (2.5-4.90); Total Protein 5.3 g/dL (6.4-8.2)
[2020-07-31] MEDS: METOCLOPRAMIDE HCL 5MG/ml INJ 2ml VIAL IV PRN ×2 (06:43→21:13)
[2020-07-31 08:59] VITALS: BP 150/84
[2020-07-31] MEDS: cefTRIAXone 1GM/50ML D5W 50 ML IV SCH (09:25)
[2020-07-31] MEDS: PANTOPRAZOLE 40 MG/10 ML VIAL INJ IV SCH (09:26)
[2020-07-31] MEDS: ONDANSETRON HCL 4 MG/2 ML VIAL IV PRN ×3 (09:26→18:13)
[2020-07-31] MEDS: ALUM & MAG HYDROX-SIMETH LIQ(MAALOX) 30 ML PO PRN (09:27)
[2020-07-31] MEDS: ENOXAPARIN SOD 40 MG/0.4 ML SYRINGE SC SCH (09:29)
[2020-07-31] MEDS: METOPROLOL TARTRATE 25 MG TAB PO SCH ×2 (09:30→22:00)
[2020-07-31 13:10] VITALS: BP 138/87
[2020-07-31] MEDS: D5W/SOD CHL 0.45%/KCL 20MEQ 1,000 ML IV SCH ×2 (13:51→22:00)
[2020-07-31] MEDS ORDERED: SODIUM PHOSPHATES 24 MEQ in SODIUM CHL 0.9% 100 ML IV ONE (14:45)
[2020-07-31 16:44] VITALS: BP 139/72
[2020-07-31 22:00] VITALS: BP 155/80
[2020-08-01] MEDS: ACETAMINOPHEN/CODEINE#3 (300/30mg) TAB PO PRN ×2 (00:37→17:39)
[2020-08-01] MEDS: METOCLOPRAMIDE HCL 5MG/ml INJ 2ml VIAL IV PRN ×3 (01:06→17:39)
[2020-08-01 05:00] VITALS: BP 129/82
[2020-08-01] MEDS: metroNIDAZOLE 500MG/100ML 100 ML IV SCH ×2 (05:51→14:35)
[2020-08-01 08:11] LABS: Albumin 2.3 g/dL (3.4-5.0); Calcium 7.7 mg/dL (8.5-10.1); Magnesium 2.1 mg/dL (1.6-2.6); Potassium 3.1 mmol/L (3.5-5.1)
[2020-08-01 08:14] LABS: BUN/Creatinine Ratio 9.1; Bilirubin, Total 0.6 mg/dL (0.2-1.0); Phosphorus 2.2 mg/dL (2.5-4.90); Total Protein 5.5 g/dL (6.4-8.2)
[2020-08-01 09:00] VITALS: BP 147/66
[2020-08-01] MEDS: METOPROLOL TARTRATE 25 MG TAB PO SCH (10:00)
[2020-08-01] MEDS: cefTRIAXone 1GM/50ML D5W 50 ML IV SCH (10:13)
[2020-08-01] MEDS: PANTOPRAZOLE 40 MG/10 ML VIAL INJ IV SCH (10:14)
[2020-08-01] MEDS: ENOXAPARIN SOD 40 MG/0.4 ML SYRINGE SC SCH (10:15)
[2020-08-01] MEDS ORDERED: POTASSIUM PHOSPHATE 26.4 MEQ in SODIUM CHL 0.9% 100 ML IV ONE (10:15)
[2020-08-01] MEDS ORDERED: POTASSIUM CHL 20 Meq TABLET PO ONE (10:15)
[2020-08-01] MEDS ORDERED: MAGNESIUM OXIDE 400 MG TAB PO ONE (10:15)
[2020-08-01] MEDS: ACETAMINOPHEN 325 MG TAB PO PRN (10:23)
[2020-08-01] MEDS: D5W/SOD CHL 0.45%/KCL 20MEQ 1,000 ML IV SCH (11:20)
[2020-08-01 13:00] VITALS: BP 150/69
[2020-08-01 15:59] VITALS: BP 142/75
== END 2020-08-01 18:30 | DRG 336 ==
LOC: ER 11:20 → EDBD 11:20 → TELE 16:16 → TELE-EAST 20:33
PROVIDERS: ADMIT Hospitalist; ATTEND Internal Medicine
PROC: 0D9670Z Drainage of Stomach with Drainage Device, Via Natural or Artificial Opening (ICD-10-PCS; 2020-07-28)
PROC: 0WQF0ZZ Repair Abdominal Wall, Open Approach (ICD-10-PCS; 2020-07-28)
PROC: 0DN80ZZ Release Small Intestine, Open Approach (ICD-10-PCS; principal; 2020-07-28 12:51)
DX: K43.0 Incisional hernia with obstruction, without gangrene (principal); I16.9 Hypertensive crisis, unspecified; I50.32 Chronic diastolic (congestive) heart failure; D68.4 Acquired coagulation factor deficiency; E44.0 Moderate protein-calorie malnutrition; Z20.822 Contact with and (suspected) exposure to COVID-19; E66.01 Morbid (severe) obesity due to excess calories; E03.9 Hypothyroidism, unspecified; M06.9 Rheumatoid arthritis, unspecified; I11.0 Hypertensive heart disease with heart failure; K52.9 Noninfective gastroenteritis and colitis, unspecified; I25.10 Atherosclerotic heart disease of native coronary artery without angina pectoris; E78.5 Hyperlipidemia, unspecified; F32.9 Major depressive disorder, single episode, unspecified; Z68.30 Body mass index [BMI] 30.0-30.9, adult; Z90.49 Acquired absence of other specified parts of digestive tract; Z86.73 Personal history of transient ischemic attack (TIA), and cerebral infarction without residual deficits; Z88.5 Allergy status to narcotic agent; Z88.8 Allergy status to other drugs, medicaments and biological substances; Z86.718 Personal history of other venous thrombosis and embolism; Z79.01 Long term (current) use of anticoagulants; Z86.711 Personal history of pulmonary embolism; R19.7 Diarrhea, unspecified
CPT/HCPCS: 36415; 71045; 74018; 74176; 74250; 80053; 80061; 82150; 83036; 83690; 83735; 84100; 84443; 84484; 85007; 85025; 85027; 85610; 85730; 86850; 86900; 86901; 87040; 87426; 87493; 88302; 93005; 93306; 93970; 96374; 96375; 96376; C9113; G0378; J0330; J0690; J0696; J1100; J1885; J2250; J2405; J2543; J3480; J3490; J7060

== ENCOUNTER → 2020-12-27 | Outpatient (CLI) | payer MEDICARE, OTHER ==
[~2020-12-27] MED LIST changes: +DULO60CA PO; +METH2.5T PO; -METH50IN6 IJ; -ROSU10TA16 PO; +ROSU1TAB14 PO
[2020-12-27 09:36] LABS: Basophils # (auto) 0 10 ^3/uL (0-0.2); Basophils % (auto) 0.5 % (0.0-2.0); Eosinophils # (auto) 0.1 10 ^3/uL (0-0.8); Eosinophils % (auto) 2.5 % (0.0-7.0); Hematocrit 36.9 % (36.0-46.0); Hemoglobin 12.6 g/dL (12.2-16.2); Lymphocytes % (auto) 17.7 % (10.0-50.0); Mean Corpuscular Hemoglobin 30.8 pg (28.0-32.0); Mean Corpuscular Hgb Conc. 34.1 g/dL (32.0-36.0); Mean Corpuscular Volume 90.2 fL (80.0-100.0); Monocytes # (auto) 0.5 10 ^3/uL (0-1.3); Monocytes % (auto) 9.2 % (0.0-12.0); Neutrophils # (auto) 4.1 10 ^3/uL (1.6-8.6); Neutrophils % (auto) 70.1 % (37.0-80.0); Red Blood Cells 4.09 10^6/uL (4.0-5.20); Red Cell Distribution Width 15.8 % (11.8-14.3); White Blood Cell 5.9 10^3/uL (4.4-10.8)
[2020-12-27 09:54] LABS: Urine Bacteria NONE SEEN /hpf (None Seen); Urine Blood Negative /uL (Negative); Urine Specific Gravity 1.024 (1.001-1.035); Urine WBC 6 /hpf (0 - 5)
[2020-12-27 09:58] LABS: Albumin 3.4 g/dL (3.4-5.0); Calcium 9.1 mg/dL (8.5-10.1); Potassium 4.1 mmol/L (3.5-5.1)
[2020-12-27 10:02] LABS: BUN/Creatinine Ratio 35.5; Bilirubin, Total 0.6 mg/dL (0.2-1.0); Total Protein 7.4 g/dL (6.4-8.2)
== END | disposition home or self-care (01) ==
LOC: LAB 08:58
PROVIDERS: ATTEND Nurse Practitioner
DX: E03.9 Hypothyroidism, unspecified (principal); I10 Essential (primary) hypertension; R73.9 Hyperglycemia, unspecified; E78.5 Hyperlipidemia, unspecified
CPT/HCPCS: 36415; 80053; 80061; 81001; 83036; 84443; 85025

== ENCOUNTER → 2021-07-16 | Outpatient (CLI) | payer OTHER ==
[2021-07-16 11:30] LABS: Basophils # (auto) 0.1 10 ^3/uL (0-0.2); Basophils % (auto) 1.4 % (0.0-2.0); Eosinophils # (auto) 0.2 10 ^3/uL (0-0.8); Eosinophils % (auto) 4.6 % (0.0-7.0); Hematocrit 42.9 % (36.0-46.0); Hemoglobin 14.1 g/dL (12.2-16.2); Lymphocytes % (auto) 20.6 % (10.0-50.0); Mean Corpuscular Hemoglobin 30.3 pg (28.0-32.0); Mean Corpuscular Hgb Conc. 32.9 g/dL (32.0-36.0); Mean Corpuscular Volume 92.1 fL (80.0-100.0); Monocytes # (auto) 0.4 10 ^3/uL (0-1.3); Monocytes % (auto) 7.3 % (0.0-12.0); Neutrophils # (auto) 3.3 10 ^3/uL (1.6-8.6); Neutrophils % (auto) 66.1 % (37.0-80.0); Red Blood Cells 4.65 10^6/uL (4.0-5.20); Red Cell Distribution Width 14.9 % (11.8-14.3)
[2021-07-16 11:46] LABS: Potassium 3.9 mmol/L (3.5-5.1)
[2021-07-16 11:57] LABS: Albumin 3.6 g/dL (3.4-5.0); BUN/Creatinine Ratio 15.4; Bilirubin, Total 0.8 mg/dL (0.2-1.0); Calcium 9.4 mg/dL (8.5-10.1); Total Protein 7.4 g/dL (6.4-8.2)
[2021-07-16 14:37] LABS: Urine Bacteria NONE SEEN /hpf (None Seen); Urine Blood Negative /uL (Negative); Urine Mucus FEW (None Seen); Urine Specific Gravity 1.027 (1.001-1.035); Urine WBC 34 /hpf (0 - 5)
== END | disposition home or self-care (01) ==
LOC: LAB 10:25
PROVIDERS: ATTEND Nurse Practitioner
DX: E78.5 Hyperlipidemia, unspecified (principal); I10 Essential (primary) hypertension; E03.9 Hypothyroidism, unspecified
CPT/HCPCS: 36415; 80053; 80061; 81001; 84443; 85025

== ENCOUNTER → 2021-11-26 | Outpatient (CLI) | payer OTHER | END | disposition home or self-care (01) | LOC: XYW 13:50 | PROVIDERS: ATTEND Internal Medicine | DX: I08.2 Rheumatic disorders of both aortic and tricuspid valves (principal); I25.10 Atherosclerotic heart disease of native coronary artery without angina pectoris | CPT/HCPCS: 93306 ==

== ENCOUNTER → 2022-02-20 | Outpatient (CLI) | payer OTHER ==
[~2022-02-20] VITALS: Ht 160 cm; Wt 71.7 kg
[~2022-02-20] MED LIST changes: +ADENOSINE 60 MG in GIVE UN-DILUTED 0 ML IV ONE
== END | disposition home or self-care (01) ==
LOC: XY 07:15
PROVIDERS: ATTEND Internal Medicine
DX: I25.10 Atherosclerotic heart disease of native coronary artery without angina pectoris (principal); I25.2 Old myocardial infarction; R09.89 Other specified symptoms and signs involving the circulatory and respiratory systems; D68.69 Other thrombophilia; I10 Essential (primary) hypertension; E78.5 Hyperlipidemia, unspecified; K58.9 Irritable bowel syndrome, unspecified
CPT/HCPCS: 78452; 93017; A9500; J0153

== ENCOUNTER → 2022-03-04 | Outpatient (CLI) | payer OTHER ==
[~2022-03-04] MED LIST changes: -ADENOSINE 60 MG in GIVE UN-DILUTED 0 ML IV ONE
[2022-03-04 09:36] LABS: Basophils # (auto) 0 10 ^3/uL (0-0.2); Basophils % (auto) 0.2 % (0.0-2.0); Eosinophils # (auto) 0.2 10 ^3/uL (0-0.8); Eosinophils % (auto) 3.2 % (0.0-7.0); Hematocrit 42.3 % (36.0-46.0); Hemoglobin 14.1 g/dL (12.2-16.2); Lymphocytes % (auto) 19.4 % (10.0-50.0); Mean Corpuscular Hemoglobin 29.8 pg (28.0-32.0); Mean Corpuscular Hgb Conc. 33.4 g/dL (32.0-36.0); Mean Corpuscular Volume 89.1 fL (80.0-100.0); Monocytes # (auto) 0.4 10 ^3/uL (0-1.3); Monocytes % (auto) 7.8 % (0.0-12.0); Neutrophils # (auto) 3.4 10 ^3/uL (1.6-8.6); Neutrophils % (auto) 69.4 % (37.0-80.0); Red Blood Cells 4.75 10^6/uL (4.0-5.20); Red Cell Distribution Width 14.9 % (11.8-14.3); White Blood Cell 4.9 10^3/uL (4.4-10.8)
[2022-03-04 10:01] LABS: Urine Bacteria FEW /hpf (None Seen); Urine Blood Negative /uL (Negative); Urine Mucus FEW (None Seen); Urine Specific Gravity 1.029 (1.001-1.035); Urine WBC 85 /hpf (0 - 5)
[2022-03-04 10:14] LABS: Albumin 3.3 g/dL (3.4-5.0)
[2022-03-04 10:22] LABS: BUN/Creatinine Ratio 28.6; Bilirubin, Total 0.8 mg/dL (0.2-1.0); Calcium 9.2 mg/dL (8.5-10.1); Total Protein 7.2 g/dL (6.4-8.2)
== END | disposition home or self-care (01) ==
LOC: LAB 09:22
PROVIDERS: ATTEND Nurse Practitioner
DX: I10 Essential (primary) hypertension (principal); E78.5 Hyperlipidemia, unspecified; E03.9 Hypothyroidism, unspecified
CPT/HCPCS: 36415; 80053; 80061; 81001; 84443; 85025

== ENCOUNTER → 2022-03-17 | Outpatient (CLI) | payer MEDICARE, OTHER | END | disposition home or self-care (01) | LOC: XY 09:54 | PROVIDERS: ATTEND Internal Medicine | DX: I65.21 Occlusion and stenosis of right carotid artery (principal); R09.89 Other specified symptoms and signs involving the circulatory and respiratory systems | CPT/HCPCS: 93886 ==

== ENCOUNTER 2022-04-30 07:25 | Day surgery (SDC) | payer OTHER ==
[2022-04-29 11:29] LABS: Basophils # (auto) 0 10 ^3/uL (0-0.2); Basophils % (auto) 0.7 % (0.0-2.0); Eosinophils # (auto) 0.1 10 ^3/uL (0-0.8); Hematocrit 39.8 % (36.0-46.0); Hemoglobin 13.7 g/dL (12.2-16.2); Lymphocytes % (auto) 16.6 % (10.0-50.0); Mean Corpuscular Hemoglobin 31.2 pg (28.0-32.0); Mean Corpuscular Hgb Conc. 34.5 g/dL (32.0-36.0); Mean Corpuscular Volume 90.3 fL (80.0-100.0); Monocytes # (auto) 0.4 10 ^3/uL (0-1.3); Monocytes % (auto) 6.6 % (0.0-12.0); Neutrophils # (auto) 4.7 10 ^3/uL (1.6-8.6); Neutrophils % (auto) 74.1 % (37.0-80.0); Red Blood Cells 4.41 10^6/uL (4.0-5.20); Red Cell Distribution Width 14.9 % (11.8-14.3); White Blood Cell 6.3 10^3/uL (4.4-10.8)
[2022-04-29 11:43] LABS: INR 1.1 (0.9-1.15); Partial Thromboplastin Time 26.9 sec (24.6-33.4)
[2022-04-29 11:58] LABS: Albumin 3.5 g/dL (3.4-5.0); Calcium 9.3 mg/dL (8.5-10.1); Potassium 4.1 mmol/L (3.5-5.1)
[2022-04-29 12:00] LABS: BUN/Creatinine Ratio 22.1
[2022-04-29 12:16] LABS: Bilirubin, Total 0.7 mg/dL (0.2-1.0); Total Protein 7.5 g/dL (6.4-8.2)
[~2022-04-30] VITALS: Ht 160 cm; Wt 71.7 kg
[~2022-04-30 07:25] MED LIST changes: -BISA10SU45 RE; -CAR3125T PO; +CARV3.1240 PO; -CARV6.25 PO; -EZET10TA22 PO; -FLEETMIN PR; -FOLI1TAB6 PO; -HYDR-4833 PO; -LOPE7.5C PO; -MAGN400S25 PO; -NITR0.4S29 SL; -ONDA-144 PO; +PANT40TA2 PO; -POLY33504 PO
[2022-04-30] MEDS ORDERED: GLYCOPYRROLATE 0.2 MG/ML 1ML VIAL ONE (09:13)
[2022-04-30] MEDS ORDERED: ATROPINE SULF 1 MG/10ml SYR ONE (09:13)
[2022-04-30] MEDS ORDERED: ANGIOMAX 250 MG VIAL IV ONE (09:13)
[2022-04-30] MEDS ORDERED: EPINEPHrine HCL 1 MG/10 ML SYRG ONE (09:14)
[2022-04-30] MEDS ORDERED: LIDOCAINE 2%HCL (LOCAL ANESTH.) INJ 10ml MDV ONE ×2 (09:14→09:21)
[2022-04-30] MEDS ORDERED: SODIUM CHL 0.9% 0 ML ONE (09:14)
[2022-04-30] MEDS ORDERED: cloNIDine HCL 0.1 MG TAB PO ONE (10:15)
== END 2022-04-30 12:20 | disposition home or self-care (01) ==
LOC: CATH 07:25
PROVIDERS: ATTEND Internal Medicine
DX: I65.21 Occlusion and stenosis of right carotid artery (principal); I65.01 Occlusion and stenosis of right vertebral artery; Z20.822 Contact with and (suspected) exposure to COVID-19; I10 Essential (primary) hypertension; Z86.73 Personal history of transient ischemic attack (TIA), and cerebral infarction without residual deficits; Z79.899 Other long term (current) drug therapy
CPT/HCPCS: 36222; 36415; 80053; 85025; 85610; 85730; C1760; C1769; C1894; J1644; J2001; U0003; 99152

== ENCOUNTER 2022-06-25 10:41 | Day surgery (SDC) | payer OTHER ==
[2022-06-24 11:02] LABS: Basophils # (auto) 0.1 10 ^3/uL (0-0.2); Basophils % (auto) 0.8 % (0.0-2.0); Eosinophils # (auto) 0.1 10 ^3/uL (0-0.8); Hematocrit 41.1 % (36.0-46.0); Hemoglobin 14.2 g/dL (12.2-16.2); Lymphocytes # (auto) 1.2 10 ^3/uL (0.4-5.4); Lymphocytes % (auto) 18.1 % (10.0-50.0); Mean Corpuscular Hemoglobin 31.3 pg (28.0-32.0); Mean Corpuscular Hgb Conc. 34.5 g/dL (32.0-36.0); Mean Corpuscular Volume 90.8 fL (80.0-100.0); Monocytes # (auto) 0.4 10 ^3/uL (0-1.3); Monocytes % (auto) 6.8 % (0.0-12.0); Neutrophils # (auto) 4.7 10 ^3/uL (1.6-8.6); Neutrophils % (auto) 72.3 % (37.0-80.0); Red Blood Cells 4.52 10^6/uL (4.0-5.20); Red Cell Distribution Width 14.4 % (11.8-14.3); White Blood Cell 6.5 10^3/uL (4.4-10.8)
[2022-06-24 11:22] LABS: INR 1.09 (0.9-1.15); Partial Thromboplastin Time 27.1 sec (24.6-33.4)
[2022-06-24 11:46] LABS: Calcium 9.2 mg/dL (8.5-10.1); Potassium 3.7 mmol/L (3.5-5.1)
[2022-06-24 11:52] LABS: Albumin 3.9 g/dL (3.4-5.0); BUN/Creatinine Ratio 16.2; Total Protein 7.9 g/dL (6.4-8.2)
[2022-06-25] VITALS (7 sets, daily range): BP systolic 126–198; BP diastolic 56–80
[~2022-06-25] VITALS: Ht 160 cm; Wt 73.6 kg
[2022-06-25] MEDS ORDERED: HEPARIN IN NS 1000Units/500mL 1,500 ML ONE (16:15)
[2022-06-25] MEDS ORDERED: IODIXANOL 320MG/ML 100ML BTL IV ONE (16:15)
[2022-06-25] MEDS ORDERED: IOHEXOL 350 MG/ML 100ML IJ ONE (16:15)
[2022-06-25] MEDS ORDERED: LIDOCAINE 2%HCL (LOCAL ANESTH.) INJ 20ML MDV ONE (16:15)
[2022-06-25] MEDS ORDERED: HEPARIN SODIUM (PORCINE) 5000 UNITS/ML 1ML VIAL ONE (16:31)
[2022-06-25] MEDS ORDERED: fentaNYL CITRATE 100 MCG/2 ML VL ONE (16:55)
[2022-06-25] MEDS ORDERED: ANGIOMAX 250 MG VIAL IV ONE (16:55)
[2022-06-25] MEDS ORDERED: SODIUM CHL 0.9% 0 ML ONE (16:56)
[2022-06-25] MEDS ORDERED: MIDAZOLAM HCL 2MG/2ML 2ml VIAL (1mg/ml) ONE (16:56)
[2022-06-25] MEDS ORDERED: hydrALAZINE HCL 20 MG/ML VL IV ONE (18:00)
== END 2022-06-25 19:00 | disposition home or self-care (01) ==
LOC: CATH 10:41
PROVIDERS: ATTEND Internal Medicine
DX: R94.39 Abnormal result of other cardiovascular function study (principal); I65.21 Occlusion and stenosis of right carotid artery; M06.9 Rheumatoid arthritis, unspecified; I10 Essential (primary) hypertension; I70.0 Atherosclerosis of aorta; Z20.822 Contact with and (suspected) exposure to COVID-19; Z79.899 Other long term (current) drug therapy; Z98.890 Other specified postprocedural states
CPT/HCPCS: 36415; 80053; 85025; 85610; 85730; 93458; C1769; C1887; C1894; J0360; J1644; J2250; J3010; Q9967; U0003; 99152

== ENCOUNTER → 2022-07-02 | Outpatient (CLI) | payer OTHER, MEDICARE ==
[2022-07-02 10:50] LABS: Basophils # (auto) 0 10 ^3/uL (0-0.2); Basophils % (auto) 0.6 % (0.0-2.0); Eosinophils # (auto) 0.1 10 ^3/uL (0-0.8); Eosinophils % (auto) 2.3 % (0.0-7.0); Hematocrit 40.8 % (36.0-46.0); Hemoglobin 13.8 g/dL (12.2-16.2); Lymphocytes # (auto) 1.1 10 ^3/uL (0.4-5.4); Lymphocytes % (auto) 18.5 % (10.0-50.0); Mean Corpuscular Hemoglobin 30.8 pg (28.0-32.0); Mean Corpuscular Hgb Conc. 33.9 g/dL (32.0-36.0); Mean Corpuscular Volume 91.1 fL (80.0-100.0); Monocytes # (auto) 0.5 10 ^3/uL (0-1.3); Monocytes % (auto) 8.2 % (0.0-12.0); Neutrophils # (auto) 4.1 10 ^3/uL (1.6-8.6); Neutrophils % (auto) 70.4 % (37.0-80.0); Nucleated Red Blood Cells % 0.1 %; Red Blood Cells 4.47 10^6/uL (4.0-5.20); Red Cell Distribution Width 14.4 % (11.8-14.3); White Blood Cell 5.8 10^3/uL (4.4-10.8)
[2022-07-02 11:31] LABS: Urine Bacteria NONE SEEN /hpf (None Seen); Urine Blood Negative /uL (Negative); Urine Mucus FEW (None Seen); Urine Specific Gravity 1.021 (1.001-1.035); Urine WBC 6 /hpf (0 - 5)
[2022-07-02 12:23] LABS: Albumin 3.7 g/dL (3.4-5.0); Calcium 9.2 mg/dL (8.5-10.1); Potassium 3.9 mmol/L (3.5-5.1)
[2022-07-02 12:28] LABS: BUN/Creatinine Ratio 20.7; Bilirubin, Total 0.6 mg/dL (0.2-1.0); Total Protein 7.6 g/dL (6.4-8.2)
== END | disposition home or self-care (01) ==
LOC: LAB 10:33
PROVIDERS: ATTEND Nurse Practitioner
DX: I10 Essential (primary) hypertension (principal); E78.5 Hyperlipidemia, unspecified
CPT/HCPCS: 36415; 80053; 80061; 81001; 84443; 85025

== ENCOUNTER → 2023-01-07 | Outpatient (CLI) | payer OTHER ==
[~2023-01-07] MED LIST changes: -ACET-1156 PO; +ACET-1881 PO; -CYAN500L3 PO; +CYAN500L4 PO; -DULO60CA PO; +DULO60CA41 PO; -HYDR12.56 PO; +HYDR12.59 PO; -LOSA-69 PO; +LOSA50TA46 PO
[2023-01-07 11:08] LABS: Urine Bacteria NONE SEEN /hpf (None Seen); Urine Blood Negative /uL (Negative); Urine Clarity HAZY (Clear); Urine Color Yellow (Yellow); Urine Protein, UAD TRACE (Negative); Urine Urobilinogen Normal (Negative); Urine WBC 2 /hpf (0 - 5); Urine pH 7.5 (5.0-8.0)
[2023-01-07 11:21] LABS: Alanine Aminotransferase 17 U/L (7-40); Albumin 4.3 g/dL (3.2-4.8); Alkaline Phosphatase 101 U/L (46-116); Aspartate Aminotransferase 14 U/L (13-40); BUN/Creatinine Ratio 12.7 (10.0-20.0); Blood Urea Nitrogen 10 mg/dL (9-23); Calcium 9.6 mg/dL (8.5-10.1); Chloride 105 mmol/L (98-107); Glucose 112 mg/dL (74-106); Potassium 4.2 mmol/L (3.5-5.1); Sodium 139 mmol/L (136-145)
[2023-01-07 11:22] LABS: Bilirubin, Total 1.1 mg/dL (0.2-1.0); Total Protein 6.9 g/dL (5.7-8.2)
== END | disposition home or self-care (01) ==
LOC: LAB 10:28
PROVIDERS: ATTEND Nurse Practitioner
DX: I10 Essential (primary) hypertension (principal); E78.5 Hyperlipidemia, unspecified; E03.9 Hypothyroidism, unspecified
CPT/HCPCS: 36415; 80053; 81001; 84443

== ENCOUNTER → 2023-03-17 | Outpatient (CLI) | payer OTHER ==
[2023-03-17 11:26] LABS: Alanine Aminotransferase 15 U/L (7-40); Albumin 4.2 g/dL (3.2-4.8); Alkaline Phosphatase 103 U/L (46-116); Anion Gap 3 (5-15); Aspartate Aminotransferase 19 U/L (13-40); BUN/Creatinine Ratio 16.2 (10.0-20.0); Blood Urea Nitrogen 11 mg/dL (9-23); Calcium 9.4 mg/dL (8.5-10.1); Carbon Dioxide 31 mmol/L (20-30); Chloride 106 mmol/L (98-107); Glucose 105 mg/dL (74-106); Potassium 4.3 mmol/L (3.5-5.1); Sodium 140 mmol/L (136-145)
[2023-03-17 11:27] LABS: Bilirubin, Total 0.9 mg/dL (0.2-1.0); Total Protein 6.9 g/dL (5.7-8.2)
== END | disposition home or self-care (01) ==
LOC: LAB 09:42
PROVIDERS: ATTEND Nurse Practitioner
DX: R73.9 Hyperglycemia, unspecified (principal); E03.9 Hypothyroidism, unspecified
CPT/HCPCS: 36415; 80053; 83036; 84443

== ENCOUNTER → 2023-06-12 | Outpatient (CLI) | payer OTHER ==
[2023-06-12 10:32] LABS: Basophils # (auto) 0 10 ^3/uL (0-0.2); Basophils % (auto) 0.4 % (0.0-2.0); Eosinophils # (auto) 0.1 10 ^3/uL (0-0.8); Eosinophils % (auto) 1.7 % (0.0-7.0); Hematocrit 43.1 % (36.0-46.0); Hemoglobin 14.3 g/dL (12.2-16.2); Lymphocytes # (auto) 1.3 10 ^3/uL (0.4-5.4); Lymphocytes % (auto) 17.1 % (10.0-50.0); Mean Corpuscular Hemoglobin 30.7 pg (28.0-32.0); Mean Corpuscular Hgb Conc. 33.1 g/dL (32.0-36.0); Mean Corpuscular Volume 92.7 fL (80.0-100.0); Monocytes # (auto) 0.5 10 ^3/uL (0-1.3); Monocytes % (auto) 7.3 % (0.0-12.0); Neutrophils # (auto) 5.5 10 ^3/uL (1.6-8.6); Neutrophils % (auto) 73.5 % (37.0-80.0); Nucleated Red Blood Cells % 0.1 %; Red Blood Cells 4.65 10^6/uL (4.0-5.20); Red Cell Distribution Width 15.8 % (11.8-14.3); White Blood Cell 7.4 10^3/uL (4.4-10.8)
[2023-06-12 10:53] LABS: Urine Bacteria FEW /hpf (None Seen); Urine Blood Negative /uL (Negative); Urine Clarity HAZY (Clear); Urine Color Yellow (Yellow); Urine Mucus FEW (None Seen); Urine Protein, UAD TRACE (Negative); Urine Specific Gravity 1.023 (1.001-1.035); Urine Urobilinogen Normal (Negative); Urine WBC 5 /hpf (0 - 5)
[2023-06-12 11:00] LABS: Alanine Aminotransferase 19 U/L (7-40); Alkaline Phosphatase 123 U/L (46-116); Anion Gap 5 (5-15); BUN/Creatinine Ratio 12.5 (10.0-20.0); Blood Urea Nitrogen 9 mg/dL (9-23); Calcium 9.4 mg/dL (8.5-10.1); Carbon Dioxide 28 mmol/L (20-30); Chloride 106 mmol/L (98-107); Glucose 93 mg/dL (74-106); Potassium 4.1 mmol/L (3.5-5.1); Sodium 139 mmol/L (136-145); Triglycerides 96 mg/dL (< 150)
[2023-06-12 11:01] LABS: Albumin 4.3 g/dL (3.2-4.8); Aspartate Aminotransferase 25 U/L (13-40); LDL Cholesterol 105 mg/dL (< 100)
[2023-06-12 11:02] LABS: Bilirubin, Total 0.7 mg/dL (0.2-1.0); Cholesterol 161 mg/dL (< 200); HDL Cholesterol 51 mg/dL (40-59); Total Protein 7.1 g/dL (5.7-8.2)
[2023-06-12 11:17] LABS: Free T3 2.49 pg/mL (2.3-4.2)
[2023-06-12 11:18] LABS: Free T4 (Free Thyroxine) 0.57 ng/dL (0.89-1.76)
== END | disposition home or self-care (01) ==
LOC: LAB 10:13
PROVIDERS: ATTEND Nurse Practitioner
DX: I10 Essential (primary) hypertension (principal); E03.9 Hypothyroidism, unspecified; E78.5 Hyperlipidemia, unspecified
CPT/HCPCS: 36415; 80053; 80061; 81001; 82306; 83036; 84439; 84443; 84481; 85025

== ENCOUNTER → 2023-12-17 | Outpatient (CLI) | payer OTHER ==
[~2023-12-17] MED LIST changes: +LOSA-534 PO; -LOSA50TA46 PO; +POTA-36 PO; -POTA10TA51 PO; -ROSU1TAB14 PO; +ROSU20TA56 PO
[2023-12-17 08:33] LABS: Alanine Aminotransferase 18 U/L (7-40); Alkaline Phosphatase 120 U/L (46-116); Anion Gap 3 (5-15); Aspartate Aminotransferase 16 U/L (13-40); BUN/Creatinine Ratio 11.3 (10.0-20.0); Blood Urea Nitrogen 9 mg/dL (9-23); Calcium 9.6 mg/dL (8.7-10.4); Carbon Dioxide 31 mmol/L (20-30); Chloride 107 mmol/L (98-107); Cholesterol 248 mg/dL (< 200); Glucose 124 mg/dL (74-106); HDL Cholesterol 46 mg/dL (40-59); LDL Cholesterol 196 mg/dL (< 100); Potassium 4.2 mmol/L (3.5-5.1); Sodium 141 mmol/L (136-145); Triglycerides 123 mg/dL (< 150)
[2023-12-17 08:34] LABS: Bilirubin, Total 0.6 mg/dL (0.2-1.0)
== END | disposition home or self-care (01) ==
LOC: LAB 07:34
PROVIDERS: ATTEND Nurse Practitioner
DX: I10 Essential (primary) hypertension (principal); R73.9 Hyperglycemia, unspecified
CPT/HCPCS: 36415; 80053; 80061; 83036; 84443

== ENCOUNTER → 2024-02-12 | Outpatient (CLI) | payer OTHER | END | disposition home or self-care (01) | LOC: LAB 09:48 | PROVIDERS: ATTEND Nurse Practitioner | DX: E03.9 Hypothyroidism, unspecified (principal) | CPT/HCPCS: 36415; 84443 ==

== ENCOUNTER → 2024-06-09 | Outpatient (CLI) | payer OTHER | END | disposition home or self-care (01) | LOC: LAB 10:37 | PROVIDERS: ATTEND Nurse Practitioner | DX: E03.9 Hypothyroidism, unspecified (principal) | CPT/HCPCS: 36415; 84443 ==